=== PATIENT | male | born 1940 | race Caucasian/White ===

== ENCOUNTER 2018-04-07 23:22 | Inpatient (IN) | payer MEDICARE, MEDICAID ==
[2018-04-07] MEDS ORDERED: Sodium Chloride 0.9% 1,000 ML IV ONE (23:42)
[2018-04-08 00:21] LABS: ALB/GLOB RATIO 1.2 (1.0-1.8); ALBUMIN 2.8 gm/dL (4.2-5.5); ALKALINE PHOSPHATASE 60 U/L (34-104); ANION GAP 10.2 (7.0-16.0); BILIRUBIN,TOTAL 0.3 mg/dL (0.3-1.0); BUN - UREA NITROGEN 18 mg/dL (7-25); CALCIUM SERUM 8.3 mg/dL (8.6-10.3); CARBON DIOXIDE 25.2 mEq/L (21.0-31.0); CHLORIDE 107 mEq/L (98-107); CREATININE - SERUM 0.9 mg/dL (0.7-1.3); GLUCOSE 109 mg/dL (70-105); POTASSIUM SERUM 3.4 mEq/L (3.5-5.1); SGOT 14 U/L (13-39); SGPT/ALT 11 U/L (7-52); SODIUM SERUM 139 mEq/L (136-145); TOTAL PROTEIN,SERUM 5.2 gm/dL (6.0-8.3)
[2018-04-08 00:22] LABS: % BASOPHILS 0.8 % (0.0-2.0); % EOSINOPHILS 3.1 % (0.0-5.0); % LYMPHOCYTES 28.5 % (20.0-50.0); % MONOCYTES 9.9 % (2.0-10.0); % NEUTROPHILS 57.7 % (40.0-80.0); EOSINOPHILE ABSOLUTE 0.2 Th/cmm (0.1-0.4); HEMATOCRIT 31.4 % (41.0-60); HEMOGLOBIN 10.8 gm/dL (12-16); LYMPHOCYTE ABSOLUTE 1.6 Th/cmm (1.5-3.0); MEAN CELL VOLUME 88.7 fl (80-99); MEAN CORPUSCULAR HEMOGLOBIN 30.5 pg (27.0-31.0); MEAN CORPUSCULAR HGB CONC 34.5 pg (28.0-36.0); MONOCYTE ABSOLUTE 0.6 Th/cmm (0.3-1.0); NEUTROPHILE ABSOLUTE 3.3 Th/cmm (1.8-8.0); PLATELET COUNT 299 Th/cmm (150-400); RED BLOOD COUNT 3.54 Mil/cmm (3.80-5.80); RED CELL DISTRIBUTION WIDTH 13.7 % (11.5-20.0); WHITE BLOOD COUNT 5.7 Th/cmm (4.8-10.8)
[2018-04-08] MEDS ORDERED: Potassium Chloride 20 mEq ER Tab PO ONE ×2 (00:57→01:07)
--- NOTE | 2018-04-08 00:59 | ED Physician Chart ---
ED Chief Complaint/HPI - Patient Information Date Seen:: 04/08/18 Time Seen:: 00:58 Chief Complaint:: Hypotension History of Present Illness:: 77 yo male was brought from SNF to ER due to decreased oral intake, confusion and agitation. Patient was found to have hypotension as well. On arrival, patient's BP was 78/44. Patient was awake and confused. Allergies:: Allergies Allergy/AdvReac Type Severity Reaction Status Date / Time No Known Allergies Allergy Verified 04/07/18 23:38 Vitals:: Vital Signs - 8 hr 04/07/18 04/07/18 23:25 23:51 Temp 97.2 F HR 72 85 RR 18 17 BP 78/44 109/57 O2 Sat % 94 96 ED Review of Systems - Review of Systems General/Constitutional: No fever, Weakness Skin: No bruising Head: No headache Eyes: No pain ENT: No nasal drainage Neck: No neck pain Cardio Vascular: No chest pain Pulmonary: No SOB GI: No nausea, No vomiting Musculoskeletal: No bone or joint pain Neurological: Weakness, Confusion ED Past Medical History - Past Medical History Past Medical History: CAD, CHF, Asthma/COPD, Dyslipidemia, PUD/GERD, Seizures, Thyroid disorder, Dementia, Other (Anemia, AFib, metabolic encephalopathy) Social History: Non Smoker, No Alcohol, No Drug Use Family Medical History - Family Member Mother History Unknown: Yes ED Physical Exam - Physical Examination General/Constitutional: Awake, Alert Other Gen/Cons comments:: generalized weakness Head: Atraumatic Eyes: PERRL Skin: No ecchymosis ENMT: Nasal exam nl Neck: No nuchal rigidity Respiratory: No Wheeze/Rhonchi/Rales Cardio Vascular: No murmur, gallop, rubs, NL S1 S2 GI: No tenderness/rebounding/guarding Extremities: normal strength in all extremities Other Neuro/Psych comments:: Oriented to self ED Labs/Radiology/EKG Results - Lab Results Results: Laboratory Tests 04/07/18 04/07/18 04/07/18 23:50 23:50 23:50 WBC 5.7 RBC 3.54 L Hgb 10.8 L Hct 31.4 L MCV 88.7 MCH 30.5 MCHC Differential 34.5 RDW 13.7 Plt Count 299 MPV 8.0 Neutrophils % 57.7 Lymphocytes % 28.5 Monocytes % 9.9 Eosinophils % 3.1 Basophils % 0.8 Sodium 139 Potassium 3.4 L Chloride 107 Carbon Dioxide 25.2 Anion Gap 10.2 BUN 18 Creatinine 0.9 Est GFR ( Amer) TNP Est GFR (Non-Af Amer) TNP BUN/Creatinine Ratio 20.0 Glucose 109 H Whole Bld Lactic Acid Calcium 8.3 L Total Bilirubin 0.3 AST 14 ALT 11 Alkaline Phosphatase 60 Troponin I B-Natriuretic Peptide 174.0 H Total Protein 5.2 L Albumin 2.8 L Globulin 2.4 Albumin/Globulin Ratio 1.2 04/07/18 04/07/18 23:50 23:50 WBC RBC Hgb Hct MCV MCH MCHC Differential RDW Plt Count MPV Neutrophils % Lymphocytes % Monocytes % Eosinophils % Basophils % Sodium Potassium Chloride Carbon Dioxide Anion Gap BUN Creatinine Est GFR ( Amer) Est GFR (Non-Af Amer) BUN/Creatinine Ratio Glucose Whole Bld Lactic Acid 1.06 Calcium Total Bilirubin AST ALT Alkaline Phosphatase Troponin I 0.01 B-Natriuretic Peptide Total Protein Albumin Globulin Albumin/Globulin Ratio - Radiology Results Results: CXR: COPD - EKG Interpretations EKG Time:: 00:15 Rate & Rhythm: Sinus rhythm [place]: normal P axis Intervals: RBBB ED Assessment - Assessment General Assessment: Hypotension Dehydration Hypokalemia Normocytic anemia CHF Assessment/Comments:: CBC, CMP, Troponin, BNP, UA CXR, EKG NS 1L IV bolus KCL 40 mEq po Admit to telemetry ED Septic Shock - . Is Septic Shock (SBP<90, OR Lactate>4 mmol\L) present?: No - <6hrs of presentation: Vital Signs: Vital Signs - 8 hr 04/07/18 04/07/18 23:25 23:51 Temp 97.2 F HR 72 85 RR 18 17 BP 78/44 109/57 O2 Sat % 94 96 ED Reassessment (Disposition) - Reassessment Reassessment Condition:: Improved - Patient Disposition Discharge/Transfer:: Acute Care w/in this hosp Admitting Medical Physician:: Christopher Garsia ED Discharge Plan - Patient Disposition Instructions: Hypotension
[2018-04-08] MEDS: D5-0.9%NS 1,000 ML IV SCH ×2 (02:01→15:20)
[2018-04-08 02:15] VITALS: BP 107/50
--- NOTE | 2018-04-08 10:07 | Diagnostic Imaging Report ---
CHEST X-RAY: AP view INDICATION: Cough COMPARISON: None FINDINGS: Chronic lung changes are seen. There is no focal consolidation or pleural effusions The heart is normal in size. Atherosclerosis is noted. Degenerative changes of the spine are noted. Nonspecific gas-filled loops of bowel in the upper abdomen are noted. IMPRESSION: Chronic lung changes. No focal consolidation identified. Atherosclerotic vascular disease.
[2018-04-08] MEDS ORDERED: VTE Chemical Prophylaxis Screen/Admission MC PRN (13:25)
[2018-04-08] MEDS ORDERED: Magnesium Hydroxide (MOM) 30 mL UDC PO PRN (16:50)
[2018-04-08] MEDS ORDERED: LACTULOSE PO SCH (17:00)
[2018-04-08] MEDS: Atorvastatin Calcium 10 MG TAB PO SCH (20:52)
[2018-04-09] MEDS ORDERED: Piperacillin Sodium/Tazobact 3.375 gm Vial IV ONE (01:06)
--- NOTE | 2018-04-09 01:41 | History & Physical ---
ADMIT DATE: 04/08/2018 CHIEF COMPLAINT: Confusion, weakness. HISTORY OF PRESENT ILLNESS: The patient is a 77-year-old male admitted from the Emergency Room to telemetry floor of [facility] due to multiple complicated medical conditions. The patient apparently was much more confused than his baseline mental status in the past few days, which actually waxed and waned. He was very weak and also agitated from time to time. The patient has had poor p.o. intake. In the Emergency Room, the patient was noted with low blood pressure, systolic blood pressure was only in the 70-80. The patient was given normal saline bolus with some improvement. However, the patient's lactic acid was normal at 1.06. He refused urine collection, will try again. His potassium is low at 3.4. BNP 174 with normal being less than 100. PAST MEDICAL HISTORY: COPD, pneumonia, atrial fibrillation, seizure, mild psychosis, anxiety, urinary tract infection. PAST SURGICAL HISTORY: Status post partial small bowel resection several years ago. MEDICATIONS: See medication reconciliation list. ALLERGIES: No known drug allergy. FAMILY HISTORY: Noncontributory. SOCIAL HISTORY: The patient is not without any children. He has one brother with loose contact from time to time. REVIEW OF SYSTEMS: Not feasible as the patient is confused and noncompliant. PHYSICAL EXAMINATION: GENERAL: Well-developed cachectic male in no acute distress. SKIN: There is excoriation in cecal area. VITAL SIGNS: Still with low blood pressure, systolic 80-90. HEENT: Normocephalic, atraumatic. Pupils equal, round, reactive to light and accommodation. CHEST: Symmetrical. LUNGS: Few wheezing appreciated. HEART: Normal sinus rhythm. S1, S2. ABDOMEN: Benign, soft, nontender. EXTREMITIES: No clubbing, cyanosis or edema bilaterally, 2+ equally. NEUROLOGICAL: Unremarkable. LABORATORY DATA: Reviewed as seen from the computer. ASSESSMENT AND PLAN: 1. Altered level of consciousness and on and off due to metabolic encephalopathy and dementia. We will observe closely. 2. Hypotension: Etiology of this is not entirely clear, but probably due to early sepsis, but the patient's lactic acid is 1.06, which is normal. We will repeat in the morning. The patient refused UA however, his white count in CBC is normal. Chest x-ray initially revealed no apparent infiltrate; however, the patient had severe dehydration and radiographic appearance may be normal in the beginning. We will continue IV hydration. 3. Chronic obstructive pulmonary disease: RT protocol. 4. Dysphagia: Swallow evaluation and aspiration precaution be exercised . 5. Congestive heart failure with elevated BNP to 178 with normal being less than 100. 6. Noncompliance, education provided. 7. History of seizure: Continue medication. 8. History of mild psychosis, adjustment medication as needed. 9. Failure to thrive: Multifactorial. 10. Deep vein thrombosis prophylaxis. [facility]# [id number]
[2018-04-09] MEDS: D5-0.9%NS 1,000 ML IV SCH ×2 (03:35→15:03)
[2018-04-09 06:24] LABS: % BASOPHILS 0.6 % (0.0-2.0); % EOSINOPHILS 4.9 % (0.0-5.0); % LYMPHOCYTES 22.1 % (20.0-50.0); % MONOCYTES 8.2 % (2.0-10.0); % NEUTROPHILS 64.2 % (40.0-80.0); EOSINOPHILE ABSOLUTE 0.3 Th/cmm (0.1-0.4); HEMATOCRIT 33.7 % (41.0-60); HEMOGLOBIN 11.4 gm/dL (12-16); LYMPHOCYTE ABSOLUTE 1.3 Th/cmm (1.5-3.0); MEAN CELL VOLUME 90.1 fl (80-99); MEAN CORPUSCULAR HEMOGLOBIN 30.5 pg (27.0-31.0); MEAN CORPUSCULAR HGB CONC 33.8 pg (28.0-36.0); MEAN PLATELET VOLUME 7.5 fl; MONOCYTE ABSOLUTE 0.5 Th/cmm (0.3-1.0); NEUTROPHILE ABSOLUTE 3.6 Th/cmm (1.8-8.0); PLATELET COUNT 345 Th/cmm (150-400); RED BLOOD COUNT 3.74 Mil/cmm (3.80-5.80); RED CELL DISTRIBUTION WIDTH 14.2 % (11.5-20.0); WHITE BLOOD COUNT 5.7 Th/cmm (4.8-10.8)
[2018-04-09 06:35] LABS: ALB/GLOB RATIO 1.3 (1.0-1.8); ALBUMIN 2.9 gm/dL (4.2-5.5); ALKALINE PHOSPHATASE 47 U/L (34-104); ANION GAP 7.7 (7.0-16.0); BILIRUBIN,TOTAL 0.5 mg/dL (0.3-1.0); BUN - UREA NITROGEN 10 mg/dL (7-25); CALCIUM SERUM 8.5 mg/dL (8.6-10.3); CARBON DIOXIDE 27.1 mEq/L (21.0-31.0); CHLORIDE 108 mEq/L (98-107); CREATININE - SERUM 0.7 mg/dL (0.7-1.3); GLUCOSE 94 mg/dL (70-105); POTASSIUM SERUM 3.8 mEq/L (3.5-5.1); SGOT 13 U/L (13-39); SGPT/ALT 10 U/L (7-52); SODIUM SERUM 139 mEq/L (136-145); TOTAL PROTEIN,SERUM 5.2 gm/dL (6.0-8.3)
[2018-04-09 06:41] LABS: URINE MICROSCOPIC INDICATED? YES; URINE SOURCE RANDOM
[2018-04-09 06:42] LABS: URINE BILIRUBIN NEGATIVE (NEGATIVE); URINE BLOOD TRACE (NEGATIVE); URINE GLUCOSE (UA) NEGATIVE (NEGATIVE); URINE KETONE NEGATIVE (NEGATIVE); URINE LEUKOCYTE ESTERASE MODERATE (NEGATIVE); URINE NITRATE NEGATIVE (NEGATIVE); URINE PH 7.5 (4.6 - 8.0); URINE PROTEIN NEGATIVE (NEGATIVE); URINE UROBILINOGEN 0.2 E.U./dL (0.2 - 1.0)
[2018-04-09 06:45] LABS: URINE CLARITY TURBID (CLEAR); URINE COLOR STRAW
[2018-04-09 06:51] LABS: URINE RBC 0-2 /hpf (0-5)
[2018-04-09 06:53] LABS: URINE BACTERIA 1+ /hpf (NONE SEEN); URINE EPITHELIAL CELLS OCCASIONAL /lpf (FEW)
[2018-04-09] MEDS ORDERED: Probiotic Screen MC PRN (08:45)
[2018-04-09] MEDS ORDERED: CHOLECALCIFEROL 1000 UNIT PO SCH (09:00)
[2018-04-09] MEDS ORDERED: Non-Formulary Item 1 EA (Cranberry Fruit Concentrate [Cranberry] 450 MG) PO SCH (09:00)
[2018-04-09] MEDS ORDERED: Non-Formulary Item 1 EA (Multivitamin [Multivitamins] 1 CAP) PO SCH (09:00)
[2018-04-09] MEDS: Lactulose 10 Gm/15 mL 30mL UDC PO SCH ×2 (09:02→16:49)
[2018-04-09] MEDS: Pantoprazole 40 mg EC Tab PO SCH (09:03)
[2018-04-09] MEDS: Multivitamin Tab PO SCH (09:03)
[2018-04-09] MEDS: Ferrous Sulfate 325 MG TAB PO SCH (09:03)
[2018-04-09] MEDS: Lactobacillus Rhamnosus GG 15 Billion CFU CAP.SPRINK PO SCH (09:50)
--- NOTE | 2018-04-09 19:49 | Internal Medicine Prog Note ---
Internal Medicine Subjective - Subjective Service Date: 04/09/18 Patient seen and examined:: without staff Patient is:: awake, verbal, agitated, congested Patient Complaints of:: congestion, cough, headache Per staff patient has:: no adverse event Internal Medicine Objective - Results Result Diagrams: 04/09/18 06:00 04/09/18 06:00 Recent Labs: Laboratory Last Values WBC 5.7 Th/cmm (4.8-10.8) 04/09/18 06:00 RBC 3.74 Mil/cmm (3.80-5.80) L 04/09/18 06:00 Hgb 11.4 gm/dL (12-16) L 04/09/18 06:00 Hct 33.7 % (41.0-60) L 04/09/18 06:00 MCV 90.1 fl (80-99) 04/09/18 06:00 MCH 30.5 pg (27.0-31.0) 04/09/18 06:00 MCHC Differential 33.8 pg (28.0-36.0) 04/09/18 06:00 RDW 14.2 % (11.5-20.0) 04/09/18 06:00 Plt Count 345 Th/cmm (150-400) 04/09/18 06:00 MPV 7.5 fl 04/09/18 06:00 Neutrophils % 64.2 % (40.0-80.0) 04/09/18 06:00 Lymphocytes % 22.1 % (20.0-50.0) 04/09/18 06:00 Monocytes % 8.2 % (2.0-10.0) 04/09/18 06:00 Eosinophils % 4.9 % (0.0-5.0) 04/09/18 06:00 Basophils % 0.6 % (0.0-2.0) 04/09/18 06:00 Sodium 139 mEq/L (136-145) 04/09/18 06:00 Potassium 3.8 mEq/L (3.5-5.1) 04/09/18 06:00 Chloride 108 mEq/L (98-107) H 04/09/18 06:00 Carbon Dioxide 27.1 mEq/L (21.0-31.0) 04/09/18 06:00 Anion Gap 7.7 (7.0-16.0) 04/09/18 06:00 BUN 10 mg/dL (7-25) 04/09/18 06:00 Creatinine 0.7 mg/dL (0.7-1.3) 04/09/18 06:00 Est GFR ( Amer) TNP 04/09/18 06:00 Est GFR (Non-Af Amer) TNP 04/09/18 06:00 BUN/Creatinine Ratio 14.3 04/09/18 06:00 Glucose 94 mg/dL (70-105) 04/09/18 06:00 Whole Bld Lactic Acid 0.70 mmol/L (0.60-1.99) 04/09/18 06:00 Calcium 8.5 mg/dL (8.6-10.3) L 04/09/18 06:00 Total Bilirubin 0.5 mg/dL (0.3-1.0) 04/09/18 06:00 AST 13 U/L (13-39) 04/09/18 06:00 ALT 10 U/L (7-52) 04/09/18 06:00 Alkaline Phosphatase 47 U/L (34-104) 04/09/18 06:00 Troponin I 0.01 ng/mL (0.01-0.05) 04/07/18 23:50 B-Natriuretic Peptide 174.0 pg/mL (5.0-100.0) H 04/07/18 23:50 Total Protein 5.2 gm/dL (6.0-8.3) L 04/09/18 06:00 Albumin 2.9 gm/dL (4.2-5.5) L 04/09/18 06:00 Globulin 2.3 gm/dL 04/09/18 06:00 Albumin/Globulin Ratio 1.3 (1.0-1.8) 04/09/18 06:00 TSH 0.91 uIU/ml (0.34-5.60) 04/09/18 06:00 Urine Source RANDOM 04/09/18 04:20 Urine Color STRAW 04/09/18 04:20 Urine Clarity TURBID (CLEAR) 04/09/18 04:20 Urine pH 7.5 (4.6 - 8.0) 04/09/18 04:20 Ur Specific [place] 1.010 (1.005-1.030) 04/09/18 04:20 Urine Protein NEGATIVE mg/dL (NEGATIVE) 04/09/18 04:20 Urine Glucose (UA) NEGATIVE mg/dL (NEGATIVE) 04/09/18 04:20 Urine Ketones NEGATIVE mg/dL (NEGATIVE) 04/09/18 04:20 Urine Blood TRACE (NEGATIVE) 04/09/18 04:20 Urine Nitrate NEGATIVE (NEGATIVE) 04/09/18 04:20 Urine Bilirubin NEGATIVE (NEGATIVE) 04/09/18 04:20 Urine Urobilinogen 0.2 E.U./dL (0.2 - 1.0) 04/09/18 04:20 Ur Leukocyte Esterase MODERATE (NEGATIVE) H 04/09/18 04:20 Urine RBC 0-2 /hpf (0-5) H 04/09/18 04:20 Urine WBC 10-25 /hpf (0-5) H 04/09/18 04:20 Ur Epithelial Cells OCCASIONAL /lpf (FEW) 04/09/18 04:20 Urine Bacteria 1+ /hpf (NONE SEEN) H 04/09/18 04:20 Urine Mucus FEW /lpf (FEW) 04/09/18 04:20 - Physical Exam Vitals and I&O: Vital Signs Temp 98.2 F 04/09/18 16:00 Pulse 69 04/09/18 16:00 Resp 17 04/09/18 16:00 BP 92/57 04/09/18 16:00 Pulse Ox 97 04/09/18 12:13 Intake & Output 04/09/18 04/09/18 04/10/18 06:59 18:59 06:59 Intake Total 1250 1367.333 Balance 1250 1367.333 Weight (lbs) 51.256 kg 51.256 kg Intake: Intake, IV Amount 1050 967.333 D5-0.9%Ns 1,000 ml @ 80 1000 917.333 mls/hr IV .[id number] [facility] Rx #:[id number] Piperacillin Sodium/ 50 50 Tazobact 3.375 gm In Sodium Chloride 0.9% 50 ml @ 100 mls/hr IV Q8H [facility] Rx#:[id number] Oral 200 400 Other: # Voids 3 3 # Bowel Movements 0 2 Weight Source Bedscale Bedscale Active Medications: Current Medications Acetaminophen (Tylenol) 650 mg PO Q6HR PRN PRN Reason: Pain or Fever >101 Stop: 06/07/18 16:49 Ascorbic Acid (Vitamin C) 500 mg PO DAILY [facility] Stop: 06/08/18 08:59 Last Admin: 04/09/18 09:03 Dose: 500 mg Atorvastatin Calcium (Lipitor) 10 mg PO HS [facility]; Protocol Stop: 06/07/18 20:59 Last Admin: 04/08/18 20:52 Dose: 10 mg Bisacodyl (Dulcolax 10 Mg Supp) 10 mg RC DAILY PRN PRN Reason: Constipation Stop: 06/07/18 16:49 Cholecalciferol (Vitamin D3) 1,000 iu PO DAILY [facility] Stop: 06/08/18 08:59 Last Admin: 04/09/18 09:03 Dose: 1,000 iu Divalproex Sodium (Depakote Er) 250 mg PO DAILY [facility]; Protocol Stop: 06/08/18 08:59 Last Admin: 04/09/18 09:03 Dose: 250 mg Divalproex Sodium (Depakote Er) 500 mg PO HS [facility]; Protocol Stop: 06/07/18 20:59 Donepezil HCl (Aricept) 5 mg PO [facility] Stop: 06/07/18 20:59 Last Admin: 04/08/18 20:53 Dose: 5 mg Ferrous Sulfate (Iron) 325 mg PO DAILY [facility] Stop: 06/08/18 08:59 Last Admin: 04/09/18 09:03 Dose: 325 mg Dextrose/Sodium Chloride (D5-0.9%Ns) 1,000 mls @ 80 mls/hr IV .[id number] [facility] Stop: 06/07/18 01:59 Last Admin: 04/09/18 15:03 Dose: 80 mls/hr Piperacillin Sod/Tazobactam (Sod 3.375 gm/ Sodium Chloride) 50 mls @ 100 mls/ hr IV Q8H [facility] Stop: 06/08/18 00:59 Last Admin: 04/09/18 16:49 Dose: 100 mls/hr Lactobacillus Rhamnosus (Culturelle 15b) 1 each PO DAILY [facility] Stop: 06/08/18 08:59 Last Admin: 04/09/18 09:50 Dose: 1 each Lactulose (Cephulac) 30 gm PO BID [facility] Stop: 06/08/18 08:59 Last Admin: 04/09/18 16:49 Dose: Not Given Magnesium Hydroxide (Milk Of Magnesia) 30 ml PO DAILY PRN PRN Reason: Constipation Stop: 06/07/18 16:49 Memantine (Namenda) 10 mg PO DAILY [facility] Stop: 06/08/18 08:59 Last Admin: 04/09/18 09:03 Dose: 10 mg Miscellaneous (Vte Chemical Prophylaxis Screen/ Admission) 1 ea PRN PRN PRN Reason: PROTOCOL Stop: 06/07/18 13:24 Miscellaneous (Probiotic Screen) 1 ea PRN PRN PRN Reason: PROTOCOL Stop: 06/08/18 08:44 Multivitamins/Vitamin C (Theragran) 1 tab PO DAILY [facility] Stop: 06/08/18 08:59 Last Admin: 04/09/18 09:03 Dose: 1 tab Nitroglycerin (Nitrostat) 0.4 mg SL Q5MIN PRN PRN Reason: Chest Pain Stop: 06/07/18 16:49 Pantoprazole Sodium (Protonix) 40 mg PO DAILY [facility] Stop: 06/08/18 08:59 Last Admin: 04/09/18 09:03 Dose: 40 mg Quetiapine Fumarate (Seroquel) 50 mg PO HS [facility]; Protocol Stop: 06/07/18 20:59 Zinc Sulfate (Zinc Sulfate) 220 mg PO DAILY [facility] Stop: 06/08/18 08:59 Last Admin: 04/09/18 09:03 Dose: 220 mg General: weak, lethargic, congested, demented, cachectic, NAD HEENT: NC/AT, PERRLA, EOMI, anicteric sclerae, throat clear Neck: Supple, No JVD, No thyromegaly, No LAD Lungs: congested, wheezing Cardiovascular: RRR, Normal S1, Normal S2 Abdomen: soft, non-tender, non-distended, positive bowel sound Extremities: clear, pedal pulses, rash, contracture, deformity Neurological: no change, lethargic, muscle weakness, unsteady, bedbound Internal Medicine Assmt/Plan - Assessment Assessment: UTI: C&S pending; continue IVPB ABX for now. ALOC: on and off; observe closely. Hypotension: etiology unclear; continue IVF. Failure to thrive: work up in progress. COPD: RT protocol. Dysphagia: better. CHF: mild, due to h/o CAd, s/o [place] Anxiety/ Psychosis. s/p partial small bowel resection about 5 years ago. Seizure: continue meds. DVT Prophylaxis.
[2018-04-09] MEDS: Atorvastatin Calcium 10 MG TAB PO SCH (20:36)
[2018-04-10] MEDS: Lactulose 10 Gm/15 mL 30mL UDC PO SCH (08:53)
[2018-04-10] MEDS: Multivitamin Tab PO SCH (08:55)
[2018-04-10] MEDS: Ferrous Sulfate 325 MG TAB PO SCH (08:55)
[2018-04-10] MEDS: Pantoprazole 40 mg EC Tab PO SCH (08:56)
[2018-04-10] MEDS: Lactobacillus Rhamnosus GG 15 Billion CFU CAP.SPRINK PO SCH (08:56)
[2018-04-10] MEDS: Atorvastatin Calcium 10 MG TAB PO SCH (20:56)
--- NOTE | 2018-04-10 22:36 | Internal Medicine Prog Note ---
Internal Medicine Subjective - Subjective Service Date: 04/10/18 Patient is:: awake, verbal, agitated, congested Patient Complaints of:: congestion, cough, headache Per staff patient has:: no adverse event Internal Medicine Objective - Results Result Diagrams: 04/09/18 06:00 04/09/18 06:00 Recent Labs: Laboratory Last Values WBC 5.7 Th/cmm (4.8-10.8) 04/09/18 06:00 RBC 3.74 Mil/cmm (3.80-5.80) L 04/09/18 06:00 Hgb 11.4 gm/dL (12-16) L 04/09/18 06:00 Hct 33.7 % (41.0-60) L 04/09/18 06:00 MCV 90.1 fl (80-99) 04/09/18 06:00 MCH 30.5 pg (27.0-31.0) 04/09/18 06:00 MCHC Differential 33.8 pg (28.0-36.0) 04/09/18 06:00 RDW 14.2 % (11.5-20.0) 04/09/18 06:00 Plt Count 345 Th/cmm (150-400) 04/09/18 06:00 MPV 7.5 fl 04/09/18 06:00 Neutrophils % 64.2 % (40.0-80.0) 04/09/18 06:00 Lymphocytes % 22.1 % (20.0-50.0) 04/09/18 06:00 Monocytes % 8.2 % (2.0-10.0) 04/09/18 06:00 Eosinophils % 4.9 % (0.0-5.0) 04/09/18 06:00 Basophils % 0.6 % (0.0-2.0) 04/09/18 06:00 Sodium 139 mEq/L (136-145) 04/09/18 06:00 Potassium 3.8 mEq/L (3.5-5.1) 04/09/18 06:00 Chloride 108 mEq/L (98-107) H 04/09/18 06:00 Carbon Dioxide 27.1 mEq/L (21.0-31.0) 04/09/18 06:00 Anion Gap 7.7 (7.0-16.0) 04/09/18 06:00 BUN 10 mg/dL (7-25) 04/09/18 06:00 Creatinine 0.7 mg/dL (0.7-1.3) 04/09/18 06:00 Est GFR ( Amer) TNP 04/09/18 06:00 Est GFR (Non-Af Amer) TNP 04/09/18 06:00 BUN/Creatinine Ratio 14.3 04/09/18 06:00 Glucose 94 mg/dL (70-105) 04/09/18 06:00 Whole Bld Lactic Acid 0.70 mmol/L (0.60-1.99) 04/09/18 06:00 Calcium 8.5 mg/dL (8.6-10.3) L 04/09/18 06:00 Total Bilirubin 0.5 mg/dL (0.3-1.0) 04/09/18 06:00 AST 13 U/L (13-39) 04/09/18 06:00 ALT 10 U/L (7-52) 04/09/18 06:00 Alkaline Phosphatase 47 U/L (34-104) 04/09/18 06:00 Troponin I 0.01 ng/mL (0.01-0.05) 04/07/18 23:50 B-Natriuretic Peptide 174.0 pg/mL (5.0-100.0) H 04/07/18 23:50 Total Protein 5.2 gm/dL (6.0-8.3) L 04/09/18 06:00 Albumin 2.9 gm/dL (4.2-5.5) L 04/09/18 06:00 Globulin 2.3 gm/dL 04/09/18 06:00 Albumin/Globulin Ratio 1.3 (1.0-1.8) 04/09/18 06:00 TSH 0.91 uIU/ml (0.34-5.60) 04/09/18 06:00 Urine Source RANDOM 04/09/18 04:20 Urine Color STRAW 04/09/18 04:20 Urine Clarity TURBID (CLEAR) 04/09/18 04:20 Urine pH 7.5 (4.6 - 8.0) 04/09/18 04:20 Ur Specific [place] 1.010 (1.005-1.030) 04/09/18 04:20 Urine Protein NEGATIVE mg/dL (NEGATIVE) 04/09/18 04:20 Urine Glucose (UA) NEGATIVE mg/dL (NEGATIVE) 04/09/18 04:20 Urine Ketones NEGATIVE mg/dL (NEGATIVE) 04/09/18 04:20 Urine Blood TRACE (NEGATIVE) 04/09/18 04:20 Urine Nitrate NEGATIVE (NEGATIVE) 04/09/18 04:20 Urine Bilirubin NEGATIVE (NEGATIVE) 04/09/18 04:20 Urine Urobilinogen 0.2 E.U./dL (0.2 - 1.0) 04/09/18 04:20 Ur Leukocyte Esterase MODERATE (NEGATIVE) H 04/09/18 04:20 Urine RBC 0-2 /hpf (0-5) H 04/09/18 04:20 Urine WBC 10-25 /hpf (0-5) H 04/09/18 04:20 Ur Epithelial Cells OCCASIONAL /lpf (FEW) 04/09/18 04:20 Urine Bacteria 1+ /hpf (NONE SEEN) H 04/09/18 04:20 Urine Mucus FEW /lpf (FEW) 04/09/18 04:20 - Physical Exam Vitals and I&O: Vital Signs Temp 97.0 F 04/10/18 15:52 Pulse 60 04/10/18 15:52 Resp 17 04/10/18 20:00 BP 93/60 04/10/18 15:52 Pulse Ox 96 04/10/18 15:52 Intake & Output 04/10/18 04/10/18 04/11/18 06:59 18:59 06:59 Intake Total 150 50 Balance 150 50 Weight (lbs) 48.58 kg Intake: Intake, IV Amount 50 50 Piperacillin Sodium/ 50 50 Tazobact 3.375 gm In Sodium Chloride 0.9% 50 ml @ 100 mls/hr IV Q8H [facility] Rx#:[id number] Oral 100 Other: # Voids 2 # Bowel Movements 0 Weight Source Bedscale Active Medications: Current Medications Acetaminophen (Tylenol) 650 mg PO Q6HR PRN PRN Reason: Pain or Fever >101 Stop: 06/07/18 16:49 Ascorbic Acid (Vitamin C) 500 mg PO DAILY [facility] Stop: 06/08/18 08:59 Last Admin: 04/10/18 08:55 Dose: 500 mg Atorvastatin Calcium (Lipitor) 10 mg PO [facility]; Protocol Stop: 06/07/18 20:59 Last Admin: 04/10/18 20:56 Dose: 10 mg Bisacodyl (Dulcolax 10 Mg Supp) 10 mg RC DAILY PRN PRN Reason: Constipation Stop: 06/07/18 16:49 Cholecalciferol (Vitamin D3) 1,000 iu PO DAILY [facility] Stop: 06/08/18 08:59 Last Admin: 04/10/18 08:55 Dose: 1,000 iu Divalproex Sodium (Depakote Er) 250 mg PO DAILY [facility]; Protocol Stop: 06/08/18 08:59 Last Admin: 04/10/18 08:55 Dose: 250 mg Divalproex Sodium (Depakote Er) 500 mg PO HS [facility]; Protocol Stop: 06/07/18 20:59 Last Admin: 04/10/18 20:56 Dose: 500 mg Donepezil HCl (Aricept) 5 mg PO HS [facility] Stop: 06/07/18 20:59 Last Admin: 04/10/18 20:56 Dose: 5 mg Ferrous Sulfate (Iron) 325 mg PO DAILY [facility] Stop: 06/08/18 08:59 Last Admin: 04/10/18 08:55 Dose: 325 mg Dextrose/Sodium Chloride (D5-0.9%Ns) 1,000 mls @ 80 mls/hr IV .[id number] [facility] Stop: 06/07/18 01:59 Last Admin: 04/09/18 15:03 Dose: 80 mls/hr Piperacillin Sod/Tazobactam (Sod 3.375 gm/ Sodium Chloride) 50 mls @ 100 mls/ hr IV Q8H [facility] Stop: 06/08/18 00:59 Last Infusion: 04/10/18 10:30 Dose: Infused Lactobacillus Rhamnosus (Culturelle 15b) 1 each PO DAILY [facility] Stop: 06/08/18 08:59 Last Admin: 04/10/18 08:56 Dose: 1 each Lactulose (Cephulac) 30 gm PO BID [facility] Stop: 06/08/18 08:59 Last Admin: 04/10/18 08:53 Dose: 30 gm Magnesium Hydroxide (Milk Of Magnesia) 30 ml PO DAILY PRN PRN Reason: Constipation Stop: 06/07/18 16:49 Memantine (Namenda) 10 mg PO DAILY [facility] Stop: 06/08/18 08:59 Last Admin: 04/10/18 08:56 Dose: 10 mg Miscellaneous (Vte Chemical Prophylaxis Screen/ Admission) 1 ea [facility] PRN PRN PRN Reason: PROTOCOL Stop: 06/07/18 13:24 Miscellaneous (Probiotic Screen) 1 ea [facility] PRN PRN PRN Reason: PROTOCOL Stop: 06/08/18 08:44 Multivitamins/Vitamin C (Theragran) 1 tab PO DAILY [facility] Stop: 06/08/18 08:59 Last Admin: 04/10/18 08:55 Dose: 1 tab Nitroglycerin (Nitrostat) 0.4 mg SL Q5MIN PRN PRN Reason: Chest Pain Stop: 06/07/18 16:49 Pantoprazole Sodium (Protonix) 40 mg PO DAILY [facility] Stop: 06/08/18 08:59 Last Admin: 04/10/18 08:56 Dose: 40 mg Quetiapine Fumarate (Seroquel) 50 mg PO HS [facility]; Protocol Stop: 06/07/18 20:59 Last Admin: 04/10/18 20:56 Dose: 50 mg Zinc Sulfate (Zinc Sulfate) 220 mg PO DAILY [facility] Stop: 06/08/18 08:59 Last Admin: 04/10/18 08:55 Dose: 220 mg General: weak, lethargic, congested, demented, cachectic, NAD HEENT: NC/AT, PERRLA, EOMI, anicteric sclerae, throat clear Neck: Supple, No JVD, No thyromegaly, No LAD Lungs: congested, wheezing Cardiovascular: RRR, Normal S1, Normal S2 Abdomen: soft, non-tender, non-distended, positive bowel sound Extremities: clear, pedal pulses, rash, contracture, deformity Neurological: no change, lethargic, muscle weakness, unsteady, bedbound Internal Medicine Assmt/Plan - Assessment Assessment: Hypotension: etiology unclear; continue IVF. UTI: C&S pending; continue IVPB ABX for now. ALOC: on and off; observe closely. Failure to thrive: work up in progress. COPD: RT protocol. Dysphagia: better. CHF: mild, due to h/o CAd, s/o [place] Anxiety/ Psychosis. s/p partial small bowel resection about 5 years ago. Seizure: continue meds. DVT Prophylaxis.
[2018-04-11] MEDS: Lactulose 10 Gm/15 mL 30mL UDC PO SCH ×2 (08:23→17:22)
[2018-04-11] MEDS: Pantoprazole 40 mg EC Tab PO SCH (08:24)
[2018-04-11] MEDS: Multivitamin Tab PO SCH (08:24)
[2018-04-11] MEDS: Lactobacillus Rhamnosus GG 15 Billion CFU CAP.SPRINK PO SCH (08:24)
[2018-04-11] MEDS: Ferrous Sulfate 325 MG TAB PO SCH (08:24)
[2018-04-11] MEDS: D5-0.9%NS 1,000 ML IV SCH (17:09)
[2018-04-11] MEDS: Atorvastatin Calcium 10 MG TAB PO SCH (21:25)
--- NOTE | 2018-04-11 23:09 | Internal Medicine Prog Note ---
Internal Medicine Subjective - Subjective Service Date: 04/11/18 Patient is:: awake, verbal, agitated, congested Patient Complaints of:: congestion, cough, headache Per staff patient has:: no adverse event Internal Medicine Objective - Results Result Diagrams: 04/09/18 06:00 04/09/18 06:00 Recent Labs: Laboratory Last Values WBC 5.7 Th/cmm (4.8-10.8) 04/09/18 06:00 RBC 3.74 Mil/cmm (3.80-5.80) L 04/09/18 06:00 Hgb 11.4 gm/dL (12-16) L 04/09/18 06:00 Hct 33.7 % (41.0-60) L 04/09/18 06:00 MCV 90.1 fl (80-99) 04/09/18 06:00 MCH 30.5 pg (27.0-31.0) 04/09/18 06:00 MCHC Differential 33.8 pg (28.0-36.0) 04/09/18 06:00 RDW 14.2 % (11.5-20.0) 04/09/18 06:00 Plt Count 345 Th/cmm (150-400) 04/09/18 06:00 MPV 7.5 fl 04/09/18 06:00 Neutrophils % 64.2 % (40.0-80.0) 04/09/18 06:00 Lymphocytes % 22.1 % (20.0-50.0) 04/09/18 06:00 Monocytes % 8.2 % (2.0-10.0) 04/09/18 06:00 Eosinophils % 4.9 % (0.0-5.0) 04/09/18 06:00 Basophils % 0.6 % (0.0-2.0) 04/09/18 06:00 Sodium 139 mEq/L (136-145) 04/09/18 06:00 Potassium 3.8 mEq/L (3.5-5.1) 04/09/18 06:00 Chloride 108 mEq/L (98-107) H 04/09/18 06:00 Carbon Dioxide 27.1 mEq/L (21.0-31.0) 04/09/18 06:00 Anion Gap 7.7 (7.0-16.0) 04/09/18 06:00 BUN 10 mg/dL (7-25) 04/09/18 06:00 Creatinine 0.7 mg/dL (0.7-1.3) 04/09/18 06:00 Est GFR ( Amer) TNP 04/09/18 06:00 Est GFR (Non-Af Amer) TNP 04/09/18 06:00 BUN/Creatinine Ratio 14.3 04/09/18 06:00 Glucose 94 mg/dL (70-105) 04/09/18 06:00 Whole Bld Lactic Acid 0.70 mmol/L (0.60-1.99) 04/09/18 06:00 Calcium 8.5 mg/dL (8.6-10.3) L 04/09/18 06:00 Total Bilirubin 0.5 mg/dL (0.3-1.0) 04/09/18 06:00 AST 13 U/L (13-39) 04/09/18 06:00 ALT 10 U/L (7-52) 04/09/18 06:00 Alkaline Phosphatase 47 U/L (34-104) 04/09/18 06:00 Troponin I 0.01 ng/mL (0.01-0.05) 04/07/18 23:50 B-Natriuretic Peptide 174.0 pg/mL (5.0-100.0) H 04/07/18 23:50 Total Protein 5.2 gm/dL (6.0-8.3) L 04/09/18 06:00 Albumin 2.9 gm/dL (4.2-5.5) L 04/09/18 06:00 Globulin 2.3 gm/dL 04/09/18 06:00 Albumin/Globulin Ratio 1.3 (1.0-1.8) 04/09/18 06:00 TSH 0.91 uIU/ml (0.34-5.60) 04/09/18 06:00 Urine Source RANDOM 04/09/18 04:20 Urine Color STRAW 04/09/18 04:20 Urine Clarity TURBID (CLEAR) 04/09/18 04:20 Urine pH 7.5 (4.6 - 8.0) 04/09/18 04:20 Ur Specific [place] 1.010 (1.005-1.030) 04/09/18 04:20 Urine Protein NEGATIVE mg/dL (NEGATIVE) 04/09/18 04:20 Urine Glucose (UA) NEGATIVE mg/dL (NEGATIVE) 04/09/18 04:20 Urine Ketones NEGATIVE mg/dL (NEGATIVE) 04/09/18 04:20 Urine Blood TRACE (NEGATIVE) 04/09/18 04:20 Urine Nitrate NEGATIVE (NEGATIVE) 04/09/18 04:20 Urine Bilirubin NEGATIVE (NEGATIVE) 04/09/18 04:20 Urine Urobilinogen 0.2 E.U./dL (0.2 - 1.0) 04/09/18 04:20 Ur Leukocyte Esterase MODERATE (NEGATIVE) H 04/09/18 04:20 Urine RBC 0-2 /hpf (0-5) H 04/09/18 04:20 Urine WBC 10-25 /hpf (0-5) H 04/09/18 04:20 Ur Epithelial Cells OCCASIONAL /lpf (FEW) 04/09/18 04:20 Urine Bacteria 1+ /hpf (NONE SEEN) H 04/09/18 04:20 Urine Mucus FEW /lpf (FEW) 04/09/18 04:20 - Physical Exam Vitals and I&O: Vital Signs Temp 97.4 F 04/11/18 20:00 Pulse 70 04/11/18 20:00 Resp 18 04/11/18 20:00 BP 89/48 04/11/18 20:00 Pulse Ox 97 04/11/18 20:00 Intake & Output 04/11/18 04/11/18 04/12/18 06:59 18:59 06:59 Intake Total 200 596.667 Output Total 5 Balance 200 591.667 Weight (lbs) 48.625 kg 48.534 kg Intake: Intake, IV Amount 146.667 D5-0.9%Ns 1,000 ml @ 80 146.667 mls/hr IV .[id number] [facility] Rx #:[id number] Oral 200 450 Output: Urine 4 Stool 1 Other: # Voids 2 # Bowel Movements 0 Stool Characteristics Soft Brown Weight Source Bedscale Bedscale Active Medications: Current Medications Acetaminophen (Tylenol) 650 mg PO Q6HR PRN PRN Reason: Pain or Fever >101 Stop: 06/07/18 16:49 Last Admin: 04/11/18 08:28 Dose: 650 mg Ascorbic Acid (Vitamin C) 500 mg PO DAILY [facility] Stop: 06/08/18 08:59 Last Admin: 04/11/18 08:23 Dose: 500 mg Atorvastatin Calcium (Lipitor) 10 mg PO HS [facility]; Protocol Stop: 06/07/18 20:59 Last Admin: 04/11/18 21:25 Dose: 10 mg Bisacodyl (Dulcolax 10 Mg Supp) 10 mg RC DAILY PRN PRN Reason: Constipation Stop: 06/07/18 16:49 Cholecalciferol (Vitamin D3) 1,000 iu PO DAILY [facility] Stop: 06/08/18 08:59 Last Admin: 04/11/18 08:23 Dose: 1,000 iu Divalproex Sodium (Depakote Er) 250 mg PO DAILY [facility]; Protocol Stop: 06/08/18 08:59 Last Admin: 04/11/18 08:23 Dose: 250 mg Divalproex Sodium (Depakote Er) 500 mg PO HS [facility]; Protocol Stop: 06/07/18 20:59 Last Admin: 04/11/18 21:24 Dose: 500 mg Donepezil HCl (Aricept) 5 mg PO [facility] Stop: 06/07/18 20:59 Last Admin: 04/11/18 21:25 Dose: 5 mg Ferrous Sulfate (Iron) 325 mg PO DAILY [facility] Stop: 06/08/18 08:59 Last Admin: 04/11/18 08:24 Dose: 325 mg Dextrose/Sodium Chloride (D5-0.9%Ns) 1,000 mls @ 80 mls/hr IV .[id number] [facility] Stop: 06/07/18 01:59 Last Infusion: 04/11/18 18:59 Dose: 80 mls/hr Piperacillin Sod/Tazobactam (Sod 3.375 gm/ Sodium Chloride) 50 mls @ 100 mls/ hr IV Q8H [facility] Stop: 06/08/18 00:59 Last Admin: 04/11/18 00:23 Dose: 100 mls/hr Lactobacillus Rhamnosus (Culturelle 15b) 1 each PO DAILY [facility] Stop: 06/08/18 08:59 Last Admin: 04/11/18 08:24 Dose: 1 each Lactulose (Cephulac) 30 gm PO BID [facility] Stop: 06/08/18 08:59 Last Admin: 04/11/18 17:22 Dose: Not Given Magnesium Hydroxide (Milk Of Magnesia) 30 ml PO DAILY PRN PRN Reason: Constipation Stop: 06/07/18 16:49 Memantine (Namenda) 10 mg PO DAILY [facility] Stop: 06/08/18 08:59 Last Admin: 04/11/18 08:24 Dose: 10 mg Miscellaneous (Vte Chemical Prophylaxis Screen/ Admission) 1 ea PRN PRN PRN Reason: PROTOCOL Stop: 06/07/18 13:24 Miscellaneous (Probiotic Screen) 1 ea PRN PRN PRN Reason: PROTOCOL Stop: 06/08/18 08:44 Multivitamins/Vitamin C (Theragran) 1 tab PO DAILY [facility] Stop: 06/08/18 08:59 Last Admin: 04/11/18 08:24 Dose: 1 tab Nitroglycerin (Nitrostat) 0.4 mg SL Q5MIN PRN PRN Reason: Chest Pain Stop: 06/07/18 16:49 Pantoprazole Sodium (Protonix) 40 mg PO DAILY [facility] Stop: 06/08/18 08:59 Last Admin: 04/11/18 08:24 Dose: 40 mg Quetiapine Fumarate (Seroquel) 50 mg PO HS [facility]; Protocol Stop: 06/07/18 20:59 Last Admin: 04/11/18 21:25 Dose: 50 mg Zinc Sulfate (Zinc Sulfate) 220 mg PO DAILY [facility] Stop: 06/08/18 08:59 Last Admin: 04/11/18 08:24 Dose: 220 mg General: weak, lethargic, congested, demented, cachectic, NAD HEENT: NC/AT, PERRLA, EOMI, anicteric sclerae, throat clear Neck: Supple, No JVD, No thyromegaly, No LAD Lungs: congested, wheezing Cardiovascular: RRR, Normal S1, Normal S2 Abdomen: soft, non-tender, non-distended, positive bowel sound Extremities: clear, pedal pulses, rash, contracture, deformity Neurological: no change, lethargic, muscle weakness, unsteady, bedbound Internal Medicine Assmt/Plan - Assessment Assessment: UTI: C&S pending; continue IVPB ABX for now. ALOC: on and off; observe closely. Hypotension: etiology unclear; continue IVF. Failure to thrive: work up in progress. COPD: RT protocol. Dysphagia: better. CHF: mild, due to h/o CAd, s/o [place] Anxiety/ Psychosis. s/p partial small bowel resection about 5 years ago. Seizure: continue meds. DVT Prophylaxis. Nutritional Asmnt/Malnutr-PDOC - Dietary Evaluation Malnutrition Findings (Please click <Entered> for more info): Nutritional Asmnt/Malnutrition Start: 04/11/18 11: 45 Text: Status: Complete Freq: Protocol: Document 04/11/18 11:45 JOSE (Rec: 04/11/18 11:50 JOSE ADAME- [email or web address]) Nutritional Asmnt/Malnutrition Patient General Information Diagnosis ALOC, hypotension (RFV) Pertinent Medical Hx/Surgical Hx PMH: COPD, PNA, A-fib, seizure , mild psychosis, anxiety, UTI PSH: small bowel resection Subjective Information Pt aslep at time of visit Current Diet Order/ Nutrition Support MYRA 4g Na diet Pertinent Medications vit C, lipitor, D5NS @80ml/hr (1.92L/day, 326kcals/day) Pertinent Labs 04/09: Na 139, K 3.8, Cl 108, CO2 27.1, BUN 10, Cr 0.7, Ca 8 .5, glucose 94 Nutritional Hx/Data Height 1.65 m Height (Calculated Centimeters) 165.1 Current Weight (lbs) 48.534 kg Weight (Calculated Kilograms) 48.5 Weight (Calculated Grams) 85297.4 Body Mass Index (BMI) 17.8 GI Symptoms GI Symptoms None Last BM none noted Cultural/Ethnic/Oriental Orthodox Belief unknown Usual diet at home regular Skin Integrity/Comment: garcía score 15, intact Estimated Nutritional Goals BEE in Kcals: Using Current wt Calories/Kcals/Kg 30-35kcals/kg Kcals Calculated 1470-1715kcals/day Protein: Using Current wt Protein g/k-1.2g/kg Protein Calculated 49-59g/day Fluid: ml per MD Nutritional Problem 1. Problem Problem Underweight related to increased Etiology nutrient needs as evidenced by Signs/Symptoms: BMI 17.8 Intervention/Recommendation Comments Recommend continuing MYRA 4g Na diet Expected Outcomes/Goals Expected Outcomes/Goals PO intake >75% of meals
[2018-04-12 05:15] LABS: % BASOPHILS 0.9 % (0.0-2.0); % EOSINOPHILS 6.6 % (0.0-5.0); % MONOCYTES 7.2 % (2.0-10.0); % NEUTROPHILS 59.3 % (40.0-80.0); EOSINOPHILE ABSOLUTE 0.3 Th/cmm (0.1-0.4); HEMATOCRIT 32.4 % (41.0-60); HEMOGLOBIN 10.8 gm/dL (12-16); LYMPHOCYTE ABSOLUTE 1.4 Th/cmm (1.5-3.0); MEAN CELL VOLUME 89.6 fl (80-99); MEAN CORPUSCULAR HEMOGLOBIN 29.8 pg (27.0-31.0); MEAN CORPUSCULAR HGB CONC 33.3 pg (28.0-36.0); MEAN PLATELET VOLUME 7.3 fl; MONOCYTE ABSOLUTE 0.4 Th/cmm (0.3-1.0); NEUTROPHILE ABSOLUTE 3.2 Th/cmm (1.8-8.0); PLATELET COUNT 386 Th/cmm (150-400); RED BLOOD COUNT 3.62 Mil/cmm (3.80-5.80); RED CELL DISTRIBUTION WIDTH 13.9 % (11.5-20.0); WHITE BLOOD COUNT 5.3 Th/cmm (4.8-10.8)
[2018-04-12 05:33] LABS: ALBUMIN 2.7 gm/dL (4.2-5.5); ALKALINE PHOSPHATASE 39 U/L (34-104); ANION GAP 8.8 (7.0-16.0); BILIRUBIN,TOTAL 0.4 mg/dL (0.3-1.0); BUN - UREA NITROGEN 10 mg/dL (7-25); CALCIUM SERUM 8.3 mg/dL (8.6-10.3); CHLORIDE 112 mEq/L (98-107); CREATININE - SERUM 0.9 mg/dL (0.7-1.3); GLUCOSE 85 mg/dL (70-105); POTASSIUM SERUM 3.8 mEq/L (3.5-5.1); SGOT 12 U/L (13-39); SGPT/ALT 10 U/L (7-52); SODIUM SERUM 143 mEq/L (136-145); TOTAL PROTEIN,SERUM 5.3 gm/dL (6.0-8.3)
[2018-04-12] MEDS: D5-0.9%NS 1,000 ML IV SCH (07:04)
[2018-04-12] MEDS: Ferrous Sulfate 325 MG TAB PO SCH (10:11)
[2018-04-12] MEDS: Lactobacillus Rhamnosus GG 15 Billion CFU CAP.SPRINK PO SCH (10:11)
[2018-04-12] MEDS: Pantoprazole 40 mg EC Tab PO SCH (10:12)
[2018-04-12] MEDS: Lactulose 10 Gm/15 mL 30mL UDC PO SCH ×3 (10:12→18:21)
[2018-04-12] MEDS: Multivitamin Tab PO SCH (10:12)
[2018-04-12] MEDS: Atorvastatin Calcium 10 MG TAB PO SCH (23:04)
--- NOTE | 2018-04-12 23:42 | Internal Medicine Prog Note ---
Internal Medicine Subjective - Subjective Service Date: 04/12/18 Patient seen and examined:: without staff Patient is:: awake, verbal, agitated, congested Patient Complaints of:: congestion, cough, headache Per staff patient has:: no adverse event Internal Medicine Objective - Results Result Diagrams: 04/12/18 05:05 04/12/18 05:05 Recent Labs: Laboratory Last Values WBC 5.3 Th/cmm (4.8-10.8) 04/12/18 05:05 RBC 3.62 Mil/cmm (3.80-5.80) L 04/12/18 05:05 Hgb 10.8 gm/dL (12-16) L 04/12/18 05:05 Hct 32.4 % (41.0-60) L 04/12/18 05:05 MCV 89.6 fl (80-99) 04/12/18 05:05 MCH 29.8 pg (27.0-31.0) 04/12/18 05:05 MCHC Differential 33.3 pg (28.0-36.0) 04/12/18 05:05 RDW 13.9 % (11.5-20.0) 04/12/18 05:05 Plt Count 386 Th/cmm (150-400) 04/12/18 05:05 MPV 7.3 fl 04/12/18 05:05 Neutrophils % 59.3 % (40.0-80.0) 04/12/18 05:05 Lymphocytes % 26.0 % (20.0-50.0) 04/12/18 05:05 Monocytes % 7.2 % (2.0-10.0) 04/12/18 05:05 Eosinophils % 6.6 % (0.0-5.0) H 04/12/18 05:05 Basophils % 0.9 % (0.0-2.0) 04/12/18 05:05 Sodium 143 mEq/L (136-145) 04/12/18 05:05 Potassium 3.8 mEq/L (3.5-5.1) 04/12/18 05:05 Chloride 112 mEq/L (98-107) H 04/12/18 05:05 Carbon Dioxide 26.0 mEq/L (21.0-31.0) 04/12/18 05:05 Anion Gap 8.8 (7.0-16.0) 04/12/18 05:05 BUN 10 mg/dL (7-25) 04/12/18 05:05 Creatinine 0.9 mg/dL (0.7-1.3) 04/12/18 05:05 Est GFR ( Amer) TNP 04/12/18 05:05 Est GFR (Non-Af Amer) TNP 04/12/18 05:05 BUN/Creatinine Ratio 11.1 04/12/18 05:05 Glucose 85 mg/dL (70-105) 04/12/18 05:05 Whole Bld Lactic Acid 0.70 mmol/L (0.60-1.99) 04/09/18 06:00 Calcium 8.3 mg/dL (8.6-10.3) L 04/12/18 05:05 Total Bilirubin 0.4 mg/dL (0.3-1.0) 04/12/18 05:05 AST 12 U/L (13-39) L 04/12/18 05:05 ALT 10 U/L (7-52) 04/12/18 05:05 Alkaline Phosphatase 39 U/L (34-104) 04/12/18 05:05 Troponin I 0.01 ng/mL (0.01-0.05) 04/07/18 23:50 B-Natriuretic Peptide 174.0 pg/mL (5.0-100.0) H 04/07/18 23:50 Total Protein 5.3 gm/dL (6.0-8.3) L 04/12/18 05:05 Albumin 2.7 gm/dL (4.2-5.5) L 04/12/18 05:05 Globulin 2.6 gm/dL 04/12/18 05:05 Albumin/Globulin Ratio 1.0 (1.0-1.8) 04/12/18 05:05 TSH 0.91 uIU/ml (0.34-5.60) 04/09/18 06:00 Urine Source RANDOM 04/09/18 04:20 Urine Color STRAW 04/09/18 04:20 Urine Clarity TURBID (CLEAR) 04/09/18 04:20 Urine pH 7.5 (4.6 - 8.0) 04/09/18 04:20 Ur Specific [place] 1.010 (1.005-1.030) 04/09/18 04:20 Urine Protein NEGATIVE mg/dL (NEGATIVE) 04/09/18 04:20 Urine Glucose (UA) NEGATIVE mg/dL (NEGATIVE) 04/09/18 04:20 Urine Ketones NEGATIVE mg/dL (NEGATIVE) 04/09/18 04:20 Urine Blood TRACE (NEGATIVE) 04/09/18 04:20 Urine Nitrate NEGATIVE (NEGATIVE) 04/09/18 04:20 Urine Bilirubin NEGATIVE (NEGATIVE) 04/09/18 04:20 Urine Urobilinogen 0.2 E.U./dL (0.2 - 1.0) 04/09/18 04:20 Ur Leukocyte Esterase MODERATE (NEGATIVE) H 04/09/18 04:20 Urine RBC 0-2 /hpf (0-5) H 04/09/18 04:20 Urine WBC 10-25 /hpf (0-5) H 04/09/18 04:20 Ur Epithelial Cells OCCASIONAL /lpf (FEW) 04/09/18 04:20 Urine Bacteria 1+ /hpf (NONE SEEN) H 04/09/18 04:20 Urine Mucus FEW /lpf (FEW) 04/09/18 04:20 - Physical Exam Vitals and I&O: Vital Signs Temp 98.6 F 04/12/18 16:42 Pulse 59 04/12/18 16:42 Resp 17 04/12/18 16:42 BP 99/59 04/12/18 16:42 Pulse Ox 98 04/12/18 16:42 Intake & Output 04/12/18 04/12/18 04/13/18 06:59 18:59 06:59 Intake Total 853.333 150 350 Output Total 1 Balance 853.333 149 350 Weight (lbs) 46.72 kg 46.72 kg 46.72 kg Intake: Intake, IV Amount 853.333 D5-0.9%Ns 1,000 ml @ 80 853.333 mls/hr IV .[id number] [facility] Rx #:[id number] Oral 150 350 Output: Stool 1 Other: # Voids 4 4 # Bowel Movements 1 Stool Characteristics Soft Brown Weight Source Bedscale Bedscale Bedscale Active Medications: Current Medications Acetaminophen (Tylenol) 650 mg PO Q6HR PRN PRN Reason: Pain or Fever >101 Stop: 06/07/18 16:49 Last Admin: 04/11/18 08:28 Dose: 650 mg Ascorbic Acid (Vitamin C) 500 mg PO DAILY [facility] Stop: 06/08/18 08:59 Last Admin: 04/12/18 10:11 Dose: 500 mg Atorvastatin Calcium (Lipitor) 10 mg PO HS [facility]; Protocol Stop: 06/07/18 20:59 Last Admin: 04/12/18 23:04 Dose: 10 mg Bisacodyl (Dulcolax 10 Mg Supp) 10 mg RC DAILY PRN PRN Reason: Constipation Stop: 06/07/18 16:49 Cholecalciferol (Vitamin D3) 1,000 iu PO DAILY [facility] Stop: 06/08/18 08:59 Last Admin: 04/12/18 10:11 Dose: 1,000 iu Divalproex Sodium (Depakote Er) 250 mg PO DAILY [facility]; Protocol Stop: 06/08/18 08:59 Last Admin: 04/12/18 10:09 Dose: 250 mg Divalproex Sodium (Depakote Er) 500 mg PO HS [facility]; Protocol Stop: 06/07/18 20:59 Last Admin: 04/12/18 23:03 Dose: 500 mg Donepezil HCl (Aricept) 5 mg PO HS [facility] Stop: 06/07/18 20:59 Last Admin: 04/12/18 23:03 Dose: 5 mg Ferrous Sulfate (Iron) 325 mg PO DAILY [facility] Stop: 06/08/18 08:59 Last Admin: 04/12/18 10:11 Dose: 325 mg Dextrose/Sodium Chloride (D5-0.9%Ns) 1,000 mls @ 80 mls/hr IV .[id number] [facility] Stop: 06/07/18 01:59 Last Admin: 04/12/18 07:04 Dose: 80 mls/hr Piperacillin Sod/Tazobactam (Sod 3.375 gm/ Sodium Chloride) 50 mls @ 100 mls/ hr IV Q8H [facility] Stop: 06/08/18 00:59 Last Admin: 04/12/18 00:42 Dose: 100 mls/hr Lactobacillus Rhamnosus (Culturelle 15b) 1 each PO DAILY [facility] Stop: 06/08/18 08:59 Last Admin: 04/12/18 10:11 Dose: 1 each Lactulose (Cephulac) 30 gm PO BID [facility] Stop: 06/08/18 08:59 Last Admin: 04/12/18 18:21 Dose: Not Given Lorazepam (Ativan) 0.5 mg IVP Q6H PRN; Protocol PRN Reason: Agitation Stop: 06/11/18 22:29 Last Admin: 04/12/18 22:30 Dose: 0.5 mg Magnesium Hydroxide (Milk Of Magnesia) 30 ml PO DAILY PRN PRN Reason: Constipation Stop: 06/07/18 16:49 Memantine (Namenda) 10 mg PO DAILY [facility] Stop: 06/08/18 08:59 Last Admin: 04/12/18 10:09 Dose: 10 mg Miscellaneous (Vte Chemical Prophylaxis Screen/ Admission) 1 ea PRN PRN PRN Reason: PROTOCOL Stop: 06/07/18 13:24 Miscellaneous (Probiotic Screen) 1 ea PRN PRN PRN Reason: PROTOCOL Stop: 06/08/18 08:44 Multivitamins/Vitamin C (Theragran) 1 tab PO DAILY [facility] Stop: 06/08/18 08:59 Last Admin: 04/12/18 10:12 Dose: 1 tab Nitroglycerin (Nitrostat) 0.4 mg SL Q5MIN PRN PRN Reason: Chest Pain Stop: 06/07/18 16:49 Pantoprazole Sodium (Protonix) 40 mg PO DAILY [facility] Stop: 06/08/18 08:59 Last Admin: 04/12/18 10:12 Dose: 40 mg Quetiapine Fumarate (Seroquel) 50 mg PO HS [facility]; Protocol Stop: 06/07/18 20:59 Last Admin: 04/12/18 23:03 Dose: 50 mg Zinc Sulfate (Zinc Sulfate) 220 mg PO DAILY [facility] Stop: 06/08/18 08:59 Last Admin: 04/12/18 10:12 Dose: 220 mg General: weak, lethargic, congested, demented, cachectic, NAD HEENT: NC/AT, PERRLA, EOMI, anicteric sclerae, throat clear Neck: Supple, No JVD, No thyromegaly, No LAD Lungs: congested, wheezing Cardiovascular: RRR, Normal S1, Normal S2 Abdomen: soft, non-tender, non-distended, positive bowel sound Extremities: clear, pedal pulses, rash, contracture, deformity Neurological: no change, lethargic, muscle weakness, unsteady, bedbound Internal Medicine Assmt/Plan - Assessment Assessment: ALOC: on and off; observe closely. UTI: C&S pending; continue IVPB ABX for now. Hypotension: etiology unclear; continue IVF. Failure to thrive: work up in progress. COPD: RT protocol. Dysphagia: better. CHF: mild, due to h/o CAd, s/o [place] Anxiety/ Psychosis. s/p partial small bowel resection about 5 years ago. Seizure: continue meds. DVT Prophylaxis. Nutritional Asmnt/Malnutr-PDOC - Dietary Evaluation Malnutrition Findings (Please click <Entered> for more info): Nutritional Asmnt/Malnutrition Start: 04/11/18 11: 45 Text: Status: Complete Freq: Protocol: Document 04/11/18 11:45 JOSE (Rec: 04/11/18 11:50 JOSE ADAME- FNS1) Nutritional Asmnt/Malnutrition Patient General Information Diagnosis ALOC, hypotension (RFV) Pertinent Medical Hx/Surgical Hx PMH: COPD, PNA, A-fib, seizure , mild psychosis, anxiety, UTI PSH: small bowel resection Subjective Information Pt aslep at time of visit Current Diet Order/ Nutrition Support MYRA 4g Na diet Pertinent Medications vit C, lipitor, D5NS @80ml/hr (1.92L/day, 326kcals/day) Pertinent Labs 04/09: Na 139, K 3.8, Cl 108, CO2 27.1, BUN 10, Cr 0.7, Ca 8 .5, glucose 94 Nutritional Hx/Data Height 1.65 m Height (Calculated Centimeters) 165.1 Current Weight (lbs) 48.534 kg Weight (Calculated Kilograms) 48.5 Weight (Calculated Grams) 89571.4 Body Mass Index (BMI) 17.8 GI Symptoms GI Symptoms None Last BM none noted Cultural/Ethnic/Muslim Belief unknown Usual diet at home regular Skin Integrity/Comment: garcía score 15, intact Estimated Nutritional Goals BEE in Kcals: Using Current wt Calories/Kcals/Kg 30-35kcals/kg Kcals Calculated 1470-1715kcals/day Protein: Using Current wt Protein g/k-1.2g/kg Protein Calculated 49-59g/day Fluid: ml per MD Nutritional Problem 1. Problem Problem Underweight related to increased Etiology nutrient needs as evidenced by Signs/Symptoms: BMI 17.8 Intervention/Recommendation Comments Recommend continuing MYRA 4g Na diet Expected Outcomes/Goals Expected Outcomes/Goals PO intake >75% of meals
[2018-04-13] MEDS: Multivitamin Tab PO SCH (10:14)
[2018-04-13] MEDS: Ferrous Sulfate 325 MG TAB PO SCH (10:14)
[2018-04-13] MEDS: Pantoprazole 40 mg EC Tab PO SCH (10:39)
[2018-04-13] MEDS: Lactobacillus Rhamnosus GG 15 Billion CFU CAP.SPRINK PO SCH (10:39)
[2018-04-13] MEDS: Lactulose 10 Gm/15 mL 30mL UDC PO SCH ×2 (10:43→18:22)
--- NOTE | 2018-04-21 11:52 | Discharge Summary ---
Date of admission: 04/08/2018 DATE OF DISCHARGE: 04/13/2018 Final DIAGNOSES: 1. Hypotension: improved. 2. COPD: received RT Protocol and improved. 3. UTI: on IVPB ABX 4. Noncompliance: improved. 5. Altered level of conscious: improved. 6. Dysphagia: improved. HOSPITAL COURSE: This 77-year-old male admitted to hypotension, ALOC, UTI, COPD , CHF, etc. The patient was very confused and agitated initially. He received IVF and IVPB ABX and RT protocol. The pt was noncompliant from time to time. With proper treatment, the pt's conditions improved. He was discharged to [facility] in [place], DISCHARGE CONDITION: Stable. DISPOSITION: [facility]. Discharge Medication: continue all meds from here. Follow up: same day in [facility]. JOB# [id number] SUPA
== END 2018-04-13 21:00 | DRG 871 ==
LOC: ER 23:22 → TELE 04-08 01:15
PROVIDERS: ADMIT Internal Medicine; ATTEND Internal Medicine
DX: A41.9 Sepsis, unspecified organism (principal); G93.41 Metabolic encephalopathy; N39.0 Urinary tract infection, site not specified; Z68.1 Body mass index [BMI] 19.9 or less, adult; I95.9 Hypotension, unspecified; E86.0 Dehydration; J44.9 Chronic obstructive pulmonary disease, unspecified; R62.7 Adult failure to thrive; R13.10 Dysphagia, unspecified; I25.10 Atherosclerotic heart disease of native coronary artery without angina pectoris; I50.9 Heart failure, unspecified; E78.5 Hyperlipidemia, unspecified; K21.9 Gastro-esophageal reflux disease without esophagitis; F03.90 Unspecified dementia, unspecified severity, without behavioral disturbance, psychotic disturbance, mood disturbance, and anxiety; I48.91 Unspecified atrial fibrillation; E87.6 Hypokalemia; D64.9 Anemia, unspecified; R56.9 Unspecified convulsions; F29 Unspecified psychosis not due to a substance or known physiological condition; Z91.19 Patient's noncompliance with other medical treatment and regimen
CPT/HCPCS: 36415-UA; 71045-TC; 80053-TC; 81001-TC; 83605; 83880-TC; 84443-TC; 84484-TC; 85025-TC; 87086-90; 93005; J2060; J2543; J7030; J7042; Z7610

== ENCOUNTER 2018-08-20 22:28 | Inpatient (IN) | payer MEDICARE, MEDICAID ==
--- NOTE | 2018-08-20 23:01 | ED Physician Chart ---
ED Chief Complaint/HPI - Patient Information Date Seen:: 08/20/18 Time Seen:: 22:45 Chief Complaint:: anorexia and increasing confusion History of Present Illness:: Patient's had anorexia and increasing confusion recently. He he's had a 10 pound weight loss over the last 2 months. He denies abdominal pain at present. Allergies:: Allergies Allergy/AdvReac Type Severity Reaction Status Date / Time No Known Allergies Allergy Verified 04/07/18 23:38 Vitals:: Vital Signs - 8 hr 08/20/18 22:30 Temp 97.8 F HR 82 RR 16 BP 102/65 O2 Sat % 95 Historian:: Patient, EMS Review:: Transfer documents Reviewed ED Review of Systems - Review of Systems General/Constitutional: No fever, No chills Skin: No skin lesions Head: No headache Eyes: No loss of vision ENT: No earache Neck: No neck pain Cardio Vascular: No chest pain Pulmonary: No SOB GI: No nausea, No vomiting, No diarrhea, No pain, Other (anorexia) G/U: No dysuria Musculoskeletal: No bone or joint pain Endocrine: No polyuria, No polydipsia Psychiatric: Prior psych history Hematopoietic: No bruising Allergic/Immuno: No urticaria Neurological: No syncope ED Past Medical History - Past Medical History Past Medical History: CHF, PUD/GERD, Seizures, Other (status post CVA; COPD; seizures; atrial fibrillation; psychosis; abolishes cephalopathy; history of angina; cachexia; anemia; hypothyroidism; respiratory failure;) Family History: Other (unavailable) Social History: Smoker, Care Facility Surgical History: other (unavailable ) Psychiatricy History: Dementia Family Medical History - Family Member Mother History Unknown: Yes Ethnicity: ED Physical Exam - Physical Examination General/Constitutional: Alert Other Gen/Cons comments:: Patient is confused. He does not know the correct date Head: Atraumatic Eyes: Lids, conjuctiva normal Skin: Nl inspection, No rash, No skin lesions, No ecchymosis ENMT: External ears, nose nl Neck: No nuchal rigidity Respiratory: Nl effort/Exclusion, Clear to Auscultation, No Wheeze/Rhonchi/Rales Cardio Vascular: RRR GI: No tenderness/rebounding/guarding, No organomegaly, No hernia, Normal BS's, Nondistended, No McBurney tenderness Extremities: Normal digits & nails Neuro/Psych: No focal deficits ED Labs/Radiology/EKG Results - Lab Results Results: Abnormal Lab Results 08/20/18 23:30 WBC 5.6 RBC 4.19 Hgb 13.1 Hct 38.9 L MCV 93.0 MCH 31.3 H MCHC Differential 33.7 RDW 13.7 Plt Count 212 MPV 7.8 Neutrophils % 52.9 Lymphocytes % 36.7 Monocytes % 6.8 Eosinophils % 3.3 Basophils % 0.3 Abnormal Lab Results 08/20/18 08/20/18 08/20/18 23:30 23:30 23:30 WBC 5.6 RBC 4.19 Hgb 13.1 Hct 38.9 L MCV 93.0 MCH 31.3 H MCHC Differential 33.7 RDW 13.7 Plt Count 212 MPV 7.8 Neutrophils % 52.9 Lymphocytes % 36.7 Monocytes % 6.8 Eosinophils % 3.3 Basophils % 0.3 Sodium 140 Potassium 3.9 Chloride 109 H Carbon Dioxide 26.8 Anion Gap 8.1 BUN 28 H Creatinine 0.9 Est GFR ( Amer) TNP Est GFR (Non-Af Amer) TNP BUN/Creatinine Ratio 31.1 Glucose 79 Calcium 8.8 Ammonia 72 H Lipase 20 - Radiology Results Results: Chest x-ray negative; CT scan of abdomen and pelvis showed numerous chronic appearing compression fractures ED Septic Shock - . Is Septic Shock (SBP<90, OR Lactate>4 mmol\L) present?: No - <6hrs of presentation: Vital Signs: Vital Signs - 8 hr 08/20/18 22:30 Temp 97.8 F HR 82 RR 16 BP 102/65 O2 Sat % 95 ED Reassessment (Disposition) - Reassessment Reassessment Condition:: Unchanged - Diagnosis Diagnosis:: Hepatic encephalopathy; multiple thoracic or lumbar compression fractures - Patient Disposition Admitted to:: Telemetry Admitting Medical Physician:: Christopher Garsia Condition at Disposition:: Stable, Unchanged
[2018-08-20 23:40] LABS: % BASOPHILS 0.3 % (0.0-2.0); % EOSINOPHILS 3.3 % (0.0-5.0); % LYMPHOCYTES 36.7 % (20.0-50.0); % MONOCYTES 6.8 % (2.0-10.0); % NEUTROPHILS 52.9 % (40.0-80.0); EOSINOPHILE ABSOLUTE 0.2 Th/cmm (0.1-0.4); HEMATOCRIT 38.9 % (41.0-60); HEMOGLOBIN 13.1 gm/dL (12-16); LYMPHOCYTE ABSOLUTE 2.1 Th/cmm (1.5-3.0); MEAN CORPUSCULAR HEMOGLOBIN 31.3 pg (27.0-31.0); MEAN CORPUSCULAR HGB CONC 33.7 pg (28.0-36.0); MEAN PLATELET VOLUME 7.8 fl; MONOCYTE ABSOLUTE 0.4 Th/cmm (0.3-1.0); NEUTROPHILE ABSOLUTE 2.9 Th/cmm (1.8-8.0); PLATELET COUNT 212 Th/cmm (150-400); RED BLOOD COUNT 4.19 Mil/cmm (3.80-5.80); RED CELL DISTRIBUTION WIDTH 13.7 % (11.5-20.0); WHITE BLOOD COUNT 5.6 Th/cmm (4.8-10.8)
[2018-08-20 23:52] LABS: ANION GAP 8.1 (7.0-16.0); BUN - UREA NITROGEN 28 mg/dL (7-25); CALCIUM SERUM 8.8 mg/dL (8.6-10.3); CARBON DIOXIDE 26.8 mEq/L (21.0-31.0); CHLORIDE 109 mEq/L (98-107); CREATININE - SERUM 0.9 mg/dL (0.7-1.3); GLUCOSE 79 mg/dL (70-105); LIPASE 20 U/L (11-82); POTASSIUM SERUM 3.9 mEq/L (3.5-5.1); SODIUM SERUM 140 mEq/L (136-145)
[2018-08-21 06:31] LABS: URINE SOURCE RANDOM
[2018-08-21 06:51] LABS: URINE BILIRUBIN NEGATIVE (NEGATIVE); URINE BLOOD NEGATIVE (NEGATIVE); URINE GLUCOSE (UA) NEGATIVE (NEGATIVE); URINE KETONE NEGATIVE (NEGATIVE); URINE LEUKOCYTE ESTERASE NEGATIVE (NEGATIVE); URINE NITRATE NEGATIVE (NEGATIVE); URINE PH 6.5 (4.6 - 8.0); URINE PROTEIN NEGATIVE (NEGATIVE); URINE UROBILINOGEN 0.2 E.U./dL (0.2 - 1.0)
[2018-08-21 06:58] LABS: URINE CLARITY CLEAR (CLEAR); URINE COLOR YELLOW; URINE MICROSCOPIC INDICATED? NO
[2018-08-21] MEDS ORDERED: Magnesium Hydroxide (MOM) 30 mL UDC PO PRN (08:05)
[2018-08-21] MEDS ORDERED: Albuterol/Ipratropium Neb 3 ML AERS HHN PRN (08:25)
--- NOTE | 2018-08-21 08:44 | Diagnostic Imaging Report ---
CT abdomen and pelvis without intravenous contrast Indication: Abdominal pain, history of partial small bowel obstruction Comparison: None, Technique: Axial images were obtained from the lung bases to the bilateral proximal femurs without IV contrast. Coronal reconstructions were made. total DLP: 431, CTDI9.5 FINDINGS: Bibasal passive atelectasis versus infiltrates are noted. Exam is limited due to body habitus and positioning. Exam is also limited due to lack of IV contrast. No obvious focal hepatic lesions. Patient status post cholecystectomy. Limited assessment of the spleen demonstrate no obvious focal lesions. There is suboptimal assessment of pancreas. No discrete focal lesions. No focal adrenal lesions. 7 mm nonobstructive left renal stone is noted. Distended urinary bladder is noted. There is close apposition of bowel loops along the right groin region without discrete herniation. Copious amount of stool throughout the colon with mild distal fecal impaction. No appendicitis. No free air or free fluid. Moderate atherosclerosis is noted. Advanced degenerative changes of the spine are noted with multilevel moderate to advanced old compression fractures. This is most pronounced at L1 with estimated 90% loss of height and 3 mm retropulsion. Postsurgical changes of left femur are noted. Old pelvic fractures are noted. IMPRESSION: Limited exam due to lack of IV and oral contrast. Copious stool is seen throughout the colon. Please correlate clinically for constipation. Close apposition of bowel loops along the right groin region without discrete herniation identified. No definite evidence of small bowel obstruction, however, if indicated a follow-up CT exam with oral contrast may also be obtained. 7 mm nonobstructive left renal stone. Evidence of prior cholecystectomy. Multiple spinal compression fractures most pronounced at L1 with estimated 90% loss of height and 3 mm retropulsion. Osteopenia is also noted. Bibasilar passive atelectasis versus less likely infiltrates.
--- NOTE | 2018-08-21 08:50 | Diagnostic Imaging Report ---
CHEST X-RAY: AP view INDICATION: Pneumonia COMPARISON: Chest x-ray 04/07/2018 FINDINGS: Increased interstitial lung markings are noted with suboptimal lung volumes. No focal consolidation or effusions. Mild cardiomegaly is noted. Exam is limited due to rotation. Old left proximal humeral fracture is noted. IMPRESSION: Increased interstitial lung markings favoring chronic lung changes. A marginal degree of congestion is less likely. Mild cardiomegaly.
[2018-08-21] MEDS ORDERED: Non-Formulary Item 1 EA (Cranberry Fruit Concentrate [Cranberry] 450 MG) PO SCH (09:00)
[2018-08-21] MEDS: Multivitamin Tab PO SCH (12:50)
[2018-08-21] MEDS: Ferrous Sulfate 325 MG TAB PO SCH (12:50)
[2018-08-21] MEDS: Lactobacillus Rhamnosus GG 15 Billion CFU CAP.SPRINK PO SCH (12:51)
[2018-08-21] MEDS: Calcium Carb/Vit D 500 mg/200 U Tab PO SCH (12:51)
[2018-08-21] MEDS ORDERED: VTE Chemical Prophylaxis Screen/Admission MC PRN (12:59)
[2018-08-21] MEDS: Atorvastatin Calcium 10 MG TAB PO SCH (21:38)
--- NOTE | 2018-08-21 23:01 | History & Physical ---
ADMIT DATE: 08/21/2018 CHIEF COMPLAINT: Abdominal pain of 7/10 by the patient, confusion and weakness by the nursing staff. HISTORY OF PRESENT ILLNESS: The patient is a 77-year-old male admitted from the Emergency Room into telemetry floor of [facility] [place] due to multiple complicated medical conditions. In the half-way, the patient was complaining of 7-8/10 abdominal pain. However, on physical examination, his abdomen appears to be benign. Abdominal and pelvic CT scan done revealed copious stool throughout the colon suggesting constipation. There is also close apposition of bowel loops along the right region without discrete hernia identified as well as multiple spinal compression fracture. Chest x-ray done revealed chronic lung disease with marginal degree of congestion. Lab morris, the patient's ammonia is elevated to 72. He is also slightly dehydrated with a BUN 28, creatinine 0.9. ASSESSMENT AND PLAN: 1. Abdominal pain: The CT scan of abdomen was pretty much unremarkable and suggesting constipation. We will make sure the patient has bowel movement. 2. Altered level of consciousness, metabolic encephalopathy, and dementia. 3. Severe weakness: Fall precaution and physical therapy. 4. Elevated ammonia level: We will repeat ammonia level. 5. Chronic obstructive pulmonary disease: RT protocol. 6. Seizure disorder: Fall precaution. Adjust medication as needed. 7. Deep vein thrombosis prophylaxis. JOB# [id number]
[2018-08-21] MEDS: D5-0.9%NS 1,000 ML IV SCH (23:25)
[2018-08-22] MEDS: Lactobacillus Rhamnosus GG 15 Billion CFU CAP.SPRINK PO SCH (09:41)
[2018-08-22] MEDS: Ferrous Sulfate 325 MG TAB PO SCH (09:41)
[2018-08-22] MEDS: Calcium Carb/Vit D 500 mg/200 U Tab PO SCH (09:41)
[2018-08-22] MEDS: Multivitamin Tab PO SCH (09:42)
[2018-08-22] MEDS: Atorvastatin Calcium 10 MG TAB PO SCH (22:09)
[2018-08-22] MEDS: D5-0.9%NS 1,000 ML IV SCH (22:35)
--- NOTE | 2018-08-22 23:39 | Internal Medicine Prog Note ---
Internal Medicine Subjective - Subjective Service Date: 08/22/18 Patient seen and examined:: without staff Patient is:: asleep, non-interactive, in bed Per staff patient has:: no adverse event Internal Medicine Objective - Results Result Diagrams: 08/20/18 23:30 08/20/18 23:30 Recent Labs: Laboratory Last Values WBC 5.6 Th/cmm (4.8-10.8) 08/20/18 23:30 RBC 4.19 Mil/cmm (3.80-5.80) 08/20/18 23:30 Hgb 13.1 gm/dL (12-16) 08/20/18 23:30 Hct 38.9 % (41.0-60) L 08/20/18 23:30 MCV 93.0 fl (80-99) 08/20/18 23:30 MCH 31.3 pg (27.0-31.0) H 08/20/18 23:30 MCHC Differential 33.7 pg (28.0-36.0) 08/20/18 23:30 RDW 13.7 % (11.5-20.0) 08/20/18 23:30 Plt Count 212 Th/cmm (150-400) 08/20/18 23:30 MPV 7.8 fl 08/20/18 23:30 Neutrophils % 52.9 % (40.0-80.0) 08/20/18 23:30 Lymphocytes % 36.7 % (20.0-50.0) 08/20/18 23:30 Monocytes % 6.8 % (2.0-10.0) 08/20/18 23:30 Eosinophils % 3.3 % (0.0-5.0) 08/20/18 23:30 Basophils % 0.3 % (0.0-2.0) 08/20/18 23:30 Sodium 140 mEq/L (136-145) 08/20/18 23:30 Potassium 3.9 mEq/L (3.5-5.1) 08/20/18 23:30 Chloride 109 mEq/L (98-107) H 08/20/18 23:30 Carbon Dioxide 26.8 mEq/L (21.0-31.0) 08/20/18 23:30 Anion Gap 8.1 (7.0-16.0) 08/20/18 23:30 BUN 28 mg/dL (7-25) H 08/20/18 23:30 Creatinine 0.9 mg/dL (0.7-1.3) 08/20/18 23:30 Est GFR ( Amer) TNP 08/20/18 23:30 Est GFR (Non-Af Amer) TNP 08/20/18 23:30 BUN/Creatinine Ratio 31.1 08/20/18 23:30 Glucose 79 mg/dL (70-105) 08/20/18 23:30 Calcium 8.8 mg/dL (8.6-10.3) 08/20/18 23:30 Ammonia 40 umol/L (16-53) 08/22/18 06:50 B-Natriuretic Peptide 73.5 pg/mL (5.0-100.0) 08/21/18 21:11 Lipase 20 U/L (11-82) 08/20/18 23:30 TSH 1.30 uIU/ml (0.34-5.60) 08/21/18 09:06 Urine Source RANDOM 08/21/18 06:18 Urine Color YELLOW 08/21/18 06:18 Urine Clarity CLEAR (CLEAR) 08/21/18 06:18 Urine pH 6.5 (4.6 - 8.0) 08/21/18 06:18 Ur Specific [place] 1.010 (1.005-1.030) 08/21/18 06:18 Urine Protein NEGATIVE mg/dL (NEGATIVE) 08/21/18 06:18 Urine Glucose (UA) NEGATIVE mg/dL (NEGATIVE) 08/21/18 06:18 Urine Ketones NEGATIVE mg/dL (NEGATIVE) 08/21/18 06:18 Urine Blood NEGATIVE (NEGATIVE) 08/21/18 06:18 Urine Nitrate NEGATIVE (NEGATIVE) 08/21/18 06:18 Urine Bilirubin NEGATIVE (NEGATIVE) 08/21/18 06:18 Urine Urobilinogen 0.2 E.U./dL (0.2 - 1.0) 08/21/18 06:18 Ur Leukocyte Esterase NEGATIVE (NEGATIVE) 08/21/18 06:18 - Physical Exam Vitals and I&O: Vital Signs Temp 98.1 F 08/22/18 16:00 Pulse 77 08/22/18 19:30 Resp 180 08/22/18 19:30 BP 94/46 08/22/18 16:00 Pulse Ox 93 08/22/18 19:30 Intake & Output 08/22/18 08/22/18 08/23/18 06:59 18:59 06:59 Intake Total 200 1900 Balance 200 1900 Weight (lbs) 41.277 kg 41.277 kg Intake: Intake, IV Amount 1000 D5-0.9%Ns 1,000 ml @ 80 1000 mls/hr IV .[id number] [facility] Rx #:[id number] Oral 200 900 Other: # Voids 2 3 # Bowel Movements 0 0 Weight Source Bedscale Bedscale Active Medications: Current Medications Acetaminophen (Tylenol) 650 mg PO Q6HR PRN PRN Reason: Pain or Fever >101 Stop: 10/20/18 08:01 Albuterol/Ipratropium (Duoneb Neb) 3 ml HHN Q4H PRN PRN Reason: Wheezing Stop: 10/20/18 08:24 Ascorbic Acid (Vitamin C) 500 mg PO DAILY [facility] Stop: 10/20/18 08:59 Last Admin: 08/22/18 09:41 Dose: 500 mg Atorvastatin Calcium (Lipitor) 10 mg PO HS [facility]; Protocol Stop: 10/20/18 20:59 Last Admin: 08/22/18 22:09 Dose: 10 mg Bisacodyl (Dulcolax 10 Mg Supp) 10 mg RC DAILY PRN PRN Reason: Constipation Stop: 10/20/18 08:01 Calcium/Vitamin D (Oscal W/Vitamin D) 1 tab PO DAILY [facility] Stop: 10/20/18 08:59 Last Admin: 08/22/18 09:41 Dose: 1 tab Cholecalciferol (Vitamin D3) 1,000 iu PO DAILY [facility] Stop: 10/20/18 10:59 Last Admin: 08/22/18 09:41 Dose: 1,000 iu Divalproex Sodium (Depakote Er) 250 mg PO DAILY [facility]; Protocol Stop: 10/20/18 08:59 Divalproex Sodium (Depakote Er) 500 mg PO HS [facility]; Protocol Stop: 10/20/18 20:59 Docusate Sodium (Colace) 100 mg PO DAILY [facility] Stop: 10/20/18 08:59 Last Admin: 08/22/18 09:41 Dose: 100 mg Ferrous Sulfate (Iron) 325 mg PO DAILY [facility] Stop: 10/20/18 08:59 Last Admin: 08/22/18 09:41 Dose: 325 mg Heparin Sodium (Porcine) (Heparin) 5,000 units SUBQ Q12H [facility] Stop: 10/20/18 20:59 Last Admin: 08/22/18 22:09 Dose: 5,000 units Dextrose/Sodium Chloride (D5-0.9%Ns) 1,000 mls @ 80 mls/hr IV .[id number] [facility] Stop: 10/20/18 21:14 Last Admin: 08/22/18 22:35 Dose: 80 mls/hr Lactobacillus Rhamnosus (Culturelle 15b) 1 each PO DAILY [facility] Stop: 10/20/18 10:59 Last Admin: 08/22/18 09:41 Dose: 1 each Magnesium Hydroxide (Milk Of Magnesia) 30 ml PO DAILY PRN PRN Reason: Constipation Stop: 10/20/18 08:04 Mirtazapine (Remeron) 30 mg PO HS [facility] Stop: 10/20/18 20:59 Miscellaneous (Vte Chemical Prophylaxis Screen/ Admission) 1 ea [facility] PRN PRN PRN Reason: PROTOCOL Stop: 10/20/18 12:58 Multivitamins/Vitamin C (Theragran) 1 tab PO DAILY [facility] Stop: 10/20/18 10:59 Last Admin: 08/22/18 09:42 Dose: 1 tab Nitroglycerin (Nitrostat) 0.4 mg SL Q5MIN PRN PRN Reason: Chest Pain Stop: 10/20/18 08:04 Quetiapine Fumarate (Seroquel) 50 mg PO [facility]; Protocol Stop: 10/20/18 20:59 General: weak, congested HEENT: NC/AT, PERRLA, EOMI, anicteric sclerae, throat clear Neck: Supple, No JVD, No thyromegaly Lungs: wheezing Cardiovascular: RRR Abdomen: soft, non-tender, non-distended Extremities: clear Neurological: no change Internal Medicine Assmt/Plan - Assessment Assessment: ALOC: on and off; observe. Abd Pain: better. COPD exacerbation: RT protocol; considering Solumedrol if needed. Failure to thrive: work up in progress. Elevated Ammonia level; Improving. Dehydration: IVF. Seizure: controlled. Nutritional Asmnt/Malnutr-PDOC - Dietary Evaluation Malnutrition Findings (Please click <Entered> for more info): Nutritional Asmnt/Malnutrition Start: 08/21/18 12: 46 Text: Status: Complete Freq: Protocol: Document 08/21/18 12:46 ANGIE (Rec: 08/21/18 13:16 ANGIE [email or web address]) Nutritional Asmnt/Malnutrition Patient General Information Nutritional Screening High Risk Consult Diagnosis ALOC, generalized weakness, failure to thrive Pertinent Medical Hx/Surgical Hx CHF, PUD/GERD, seizures, s/p CVA, COPD, AFIB, psychosis, abolishes cephalopathy, angina , cachexia, anemia, hypothyroidism, respiratory failure, dementia Subjective Information Received diet consult for low appetite. Per ER MD note, pt was anorexic recently and lost 10# within 2 months. Spoke w/ RN who states pt had good appetite at breakfast and finished >75%. Spoke and assisted pt during lunch, but unable to understand pt d/t unclear speech. Pt appears eager to eat and asked to be left alone to eat after assistance w/ lunch was completed. Current Diet Order/ Nutrition Support mech soft ground, low Na Pertinent Medications Vit C, lipitor, oscal w/ Vit D , Vit D3, colace, iron, culturelle, remeron, theragran , seroquel Pertinent Labs 08/20: Cl 109, BUN 28 Nutritional Hx/Data Height 1.65 m Height (Calculated Centimeters) 165.1 Current Weight (lbs) 41.368 kg Weight (Calculated Kilograms) 41.4 Weight (Calculated Grams) 20017.6 [place] Body Weight 136 lb Body Mass Index (BMI) 15.1 Recent Weight Change Yes Weight Status Underweight GI Symptoms GI Symptoms None Last BM none noted Difficult in: None Food Allergies No Usual diet at home regular diet per pt Skin Integrity/Comment: scab on right foot, intact, garcía 16 Current %PO Good (75-100%) Estimated Nutritional Goals BEE in Kcals: Using Current wt Calories/Kcals/Kg 35-40 Kcals Calculated 3099-7443 Protein: Using Current wt Protein g/k.2-1.4 Protein Calculated 50-58 g Fluid: ml 9937-6298 (1 ml/kcal) Nutritional Problem 2. Problem Problem Involuntary wt loss Etiology possible low appetite Signs/Symptoms: 10# wt loss over 2 months before admission per MD note 1. Problem Problem Underweight Etiology possible poor oral intake Signs/Symptoms: BMI 15.2 Malnutrition Related to Morbid Obesity Malnutrition related to morbid obesity No Intervention/Recommendation Comments 1. Continue with [facility] soft ground, low Na diet as ordered and assist with meals as needed 2. Pt appears to have good appetite and meals will provide 100% of nutritional needs 3. Monitor PO intake, wt, labs , and skin integrity 4. F/U as moderate risk in 3-5 days, 08/24-; PO check Expected Outcomes/Goals Expected Outcomes/Goals 1. PO intake to meet at least 75% of all meals 2. Wt gain or stability, skin to remain intact, and nutrition related labs to approach normal limits Reviewed by Margaret Quiñonez RD
[2018-08-23] MEDS: Multivitamin Tab PO SCH (08:57)
[2018-08-23] MEDS: Calcium Carb/Vit D 500 mg/200 U Tab PO SCH (08:57)
[2018-08-23] MEDS: Lactobacillus Rhamnosus GG 15 Billion CFU CAP.SPRINK PO SCH (08:57)
[2018-08-23] MEDS: Ferrous Sulfate 325 MG TAB PO SCH (08:58)
[2018-08-23] MEDS: D5-0.9%NS 1,000 ML IV SCH (14:00)
--- NOTE | 2018-08-23 22:00 | Internal Medicine Prog Note ---
Internal Medicine Subjective - Subjective Service Date: 08/23/18 Patient seen and examined:: with staff Patient is:: awake, verbal, interactive, in bed Patient Complaints of:: congestion Per staff patient has:: no adverse event Internal Medicine Objective - Results Result Diagrams: 08/20/18 23:30 08/20/18 23:30 Recent Labs: Laboratory Last Values WBC 5.6 Th/cmm (4.8-10.8) 08/20/18 23:30 RBC 4.19 Mil/cmm (3.80-5.80) 08/20/18 23:30 Hgb 13.1 gm/dL (12-16) 08/20/18 23:30 Hct 38.9 % (41.0-60) L 08/20/18 23: MCV 93.0 fl (80-99) 08/20/18 23:30 MCH 31.3 pg (27.0-31.0) H 08/20/18 23:30 MCHC Differential 33.7 pg (28.0-36.0) 08/20/18 23: RDW 13.7 % (11.5-20.0) 08/20/18 23:30 Plt Count 212 Th/cmm (150-400) 08/20/18 23:30 MPV 7.8 fl 08/20/18 23:30 Neutrophils % 52.9 % (40.0-80.0) 08/20/18 23:30 Lymphocytes % 36.7 % (20.0-50.0) 08/20/18 23: Monocytes % 6.8 % (2.0-10.0) 08/20/18 23:30 Eosinophils % 3.3 % (0.0-5.0) 08/20/18 23:30 Basophils % 0.3 % (0.0-2.0) 08/20/18 23:30 Sodium 140 mEq/L (136-145) 08/20/18 23:30 Potassium 3.9 mEq/L (3.5-5.1) 08/20/18 23:30 Chloride 109 mEq/L (98-107) H 08/20/18 23:30 Carbon Dioxide 26.8 mEq/L (21.0-31.0) 08/20/18 23:30 Anion Gap 8.1 (7.0-16.0) 08/20/18 23:30 BUN 28 mg/dL (7-25) H 08/20/18 23:30 Creatinine 0.9 mg/dL (0.7-1.3) 08/20/18 23:30 Est GFR ( Amer) TNP 08/20/18 23:30 Est GFR (Non-Af Amer) TNP 08/20/18 23:30 BUN/Creatinine Ratio 31.1 08/20/18 23:30 Glucose 79 mg/dL (70-105) 08/20/18 23:30 Calcium 8.8 mg/dL (8.6-10.3) 08/20/18 23:30 Ammonia 40 umol/L (16-53) 08/22/18 06:50 B-Natriuretic Peptide 73.5 pg/mL (5.0-100.0) 08/21/18 21:11 Lipase 20 U/L (11-82) 08/20/18 23:30 TSH 1.30 uIU/ml (0.34-5.60) 08/21/18 09:06 Urine Source RANDOM 08/21/18 06:18 Urine Color YELLOW 08/21/18 06:18 Urine Clarity CLEAR (CLEAR) 08/21/18 06:18 Urine pH 6.5 (4.6 - 8.0) 08/21/18 06:18 Ur Specific [place] 1.010 (1.005-1.030) 08/21/18 06:18 Urine Protein NEGATIVE mg/dL (NEGATIVE) 08/21/18 06:18 Urine Glucose (UA) NEGATIVE mg/dL (NEGATIVE) 08/21/18 06:18 Urine Ketones NEGATIVE mg/dL (NEGATIVE) 08/21/18 06:18 Urine Blood NEGATIVE (NEGATIVE) 08/21/18 06:18 Urine Nitrate NEGATIVE (NEGATIVE) 08/21/18 06:18 Urine Bilirubin NEGATIVE (NEGATIVE) 08/21/18 06:18 Urine Urobilinogen 0.2 E.U./dL (0.2 - 1.0) 08/21/18 06:18 Ur Leukocyte Esterase NEGATIVE (NEGATIVE) 08/21/18 06:18 - Physical Exam Vitals and I&O: Vital Signs Temp 98.4 F 08/23/18 20:00 Pulse 77 08/23/18 20:00 Resp 18 08/23/18 20:00 BP 124/57 08/23/18 20:00 Pulse Ox 96 08/23/18 20:00 Intake & Output 08/23/18 08/23/18 08/24/18 06:59 18:59 06:59 Intake Total 50 2800 Balance 50 2800 Weight (lbs) 46.72 kg 46.72 kg Intake: Intake, IV Amount 1000 D5-0.9%Ns 1,000 ml @ 80 1000 mls/hr IV .[id number] [facility] Rx #:[id number] Oral 50 1800 Tube Feeding 0 Other: # Voids 3 3 # Bowel Movements 0 0 Weight Source Bedscale Bedscale Active Medications: Current Medications Acetaminophen (Tylenol) 650 mg PO Q6HR PRN PRN Reason: Pain or Fever >101 Stop: 10/20/18 08:01 Albuterol/Ipratropium (Duoneb Neb) 3 ml HHN Q4H PRN PRN Reason: Wheezing Stop: 10/20/18 08:24 Ascorbic Acid (Vitamin C) 500 mg PO DAILY [facility] Stop: 10/20/18 08:59 Last Admin: 08/23/18 08:58 Dose: 500 mg Atorvastatin Calcium (Lipitor) 10 mg PO HS [facility]; Protocol Stop: 10/20/18 20:59 Last Admin: 08/22/18 22:09 Dose: 10 mg Bisacodyl (Dulcolax 10 Mg Supp) 10 mg RC DAILY PRN PRN Reason: Constipation Stop: 10/20/18 08:01 Calcium/Vitamin D (Oscal W/Vitamin D) 1 tab PO DAILY [facility] Stop: 10/20/18 08:59 Last Admin: 08/23/18 08:57 Dose: 1 tab Cholecalciferol (Vitamin D3) 1,000 iu PO DAILY [facility] Stop: 10/20/18 10:59 Last Admin: 08/23/18 08:57 Dose: 1,000 iu Divalproex Sodium (Depakote Er) 250 mg PO DAILY [facility]; Protocol Stop: 10/20/18 08:59 Last Admin: 08/23/18 10:03 Dose: 250 mg Divalproex Sodium (Depakote Er) 500 mg PO HS [facility]; Protocol Stop: 10/20/18 20:59 Docusate Sodium (Colace) 100 mg PO DAILY [facility] Stop: 10/20/18 08:59 Last Admin: 08/23/18 08:58 Dose: 100 mg Ferrous Sulfate (Iron) 325 mg PO DAILY [facility] Stop: 10/20/18 08:59 Last Admin: 08/23/18 08:58 Dose: 325 mg Heparin Sodium (Porcine) (Heparin) 5,000 units SUBQ Q12H [facility] Stop: 10/20/18 20:59 Last Admin: 08/23/18 08:58 Dose: Not Given Dextrose/Sodium Chloride (D5-0.9%Ns) 1,000 mls @ 80 mls/hr IV .[id number] [facility] Stop: 10/20/18 21:14 Last Admin: 08/23/18 14:00 Dose: 80 mls/hr Lactobacillus Rhamnosus (Culturelle 15b) 1 each PO DAILY [facility] Stop: 10/20/18 10:59 Last Admin: 08/23/18 08:57 Dose: 1 each Magnesium Hydroxide (Milk Of Magnesia) 30 ml PO DAILY PRN PRN Reason: Constipation Stop: 10/20/18 08:04 Methylprednisolone Sodium Succinate (Solu-Medrol) 60 mg IVP Q8HR [facility] Stop: 10/23/18 04:59 Mirtazapine (Remeron) 30 mg PO HS [facility] Stop: 10/20/18 20:59 Miscellaneous (Vte Chemical Prophylaxis Screen/ Admission) 1 ea [facility] PRN PRN PRN Reason: PROTOCOL Stop: 10/20/18 12:58 Multivitamins/Vitamin C (Theragran) 1 tab PO DAILY [facility] Stop: 10/20/18 10:59 Last Admin: 08/23/18 08:57 Dose: 1 tab Nitroglycerin (Nitrostat) 0.4 mg SL Q5MIN PRN PRN Reason: Chest Pain Stop: 10/20/18 08:04 Quetiapine Fumarate (Seroquel) 50 mg PO HS [facility]; Protocol Stop: 10/20/18 20:59 General: weak, congested HEENT: NC/AT, PERRLA, EOMI, anicteric sclerae, throat clear Neck: Supple, No JVD, No thyromegaly Lungs: wheezing Cardiovascular: RRR Abdomen: soft, non-tender, non-distended Extremities: clear Neurological: no change Internal Medicine Assmt/Plan - Assessment Assessment: COPD exacerbation: RT protocol; Solumedrol IVP q8h. ALOC: on and off; observe. Abd Pain: better. Failure to thrive: work up in progress. Elevated Ammonia level; Improving. Dehydration: IVF. Seizure: controlled. Nutritional Asmnt/Malnutr-PDOC - Dietary Evaluation Malnutrition Findings (Please click <Entered> for more info): Nutritional Asmnt/Malnutrition Start: 08/21/18 12: 46 Text: Status: Complete Freq: Protocol: Document 08/21/18 12:46 ANGIE (Rec: 08/21/18 13:16 [email or web address]) Nutritional Asmnt/Malnutrition Patient General Information Nutritional Screening High Risk Consult Diagnosis ALOC, generalized weakness, failure to thrive Pertinent Medical Hx/Surgical Hx CHF, PUD/GERD, seizures, s/p CVA, COPD, AFIB, psychosis, abolishes cephalopathy, angina , cachexia, anemia, hypothyroidism, respiratory failure, dementia Subjective Information Received diet consult for low appetite. Per ER MD note, pt was anorexic recently and lost 10# within 2 months. Spoke w/ RN who states pt had good appetite at breakfast and finished >75%. Spoke and assisted pt during lunch, but unable to understand pt d/t unclear speech. Pt appears eager to eat and asked to be left alone to eat after assistance w/ lunch was completed. Current Diet Order/ Nutrition Support mech soft ground, low Na Pertinent Medications Vit C, lipitor, oscal w/ Vit D , Vit D3, colace, iron, culturelle, remeron, theragran , seroquel Pertinent Labs 08/20: Cl 109, BUN 28 Nutritional Hx/Data Height 1.65 m Height (Calculated Centimeters) 165.1 Current Weight (lbs) 41.368 kg Weight (Calculated Kilograms) 41.4 Weight (Calculated Grams) 24456.6 [place] Body Weight 136 lb Body Mass Index (BMI) 15.1 Recent Weight Change Yes Weight Status Underweight GI Symptoms GI Symptoms None Last BM none noted Difficult in: None Food Allergies No Usual diet at home regular diet per pt Skin Integrity/Comment: scab on right foot, intact, garcía 16 Current %PO Good (75-100%) Estimated Nutritional Goals BEE in Kcals: Using Current wt Calories/Kcals/Kg 35-40 Kcals Calculated 7074-4314 Protein: Using Current wt Protein g/k.2-1.4 Protein Calculated 50-58 g Fluid: ml 3568-0885 (1 ml/kcal) Nutritional Problem 2. Problem Problem Involuntary wt loss Etiology possible low appetite Signs/Symptoms: 10# wt loss over 2 months before admission per MD note 1. Problem Problem Underweight Etiology possible poor oral intake Signs/Symptoms: BMI 15.2 Malnutrition Related to Morbid Obesity Malnutrition related to morbid obesity No Intervention/Recommendation Comments 1. Continue with [facility] soft ground, low Na diet as ordered and assist with meals as needed 2. Pt appears to have good appetite and meals will provide 100% of nutritional needs 3. Monitor PO intake, wt, labs , and skin integrity 4. F/U as moderate risk in 3-5 days, 08/24-; PO check Expected Outcomes/Goals Expected Outcomes/Goals 1. PO intake to meet at least 75% of all meals 2. Wt gain or stability, skin to remain intact, and nutrition related labs to approach normal limits Reviewed by Margaret Quiñonez RD
[2018-08-24 04:41] LABS: % BASOPHILS 0.5 % (0.0-2.0); % EOSINOPHILS 4.5 % (0.0-5.0); % LYMPHOCYTES 34.8 % (20.0-50.0); % NEUTROPHILS 53.2 % (40.0-80.0); EOSINOPHILE ABSOLUTE 0.2 Th/cmm (0.1-0.4); HEMATOCRIT 37.3 % (41.0-60); HEMOGLOBIN 12.3 gm/dL (12-16); LYMPHOCYTE ABSOLUTE 1.5 Th/cmm (1.5-3.0); MEAN CELL VOLUME 92.1 fl (80-99); MEAN CORPUSCULAR HEMOGLOBIN 30.5 pg (27.0-31.0); MEAN CORPUSCULAR HGB CONC 33.1 pg (28.0-36.0); MEAN PLATELET VOLUME 8.3 fl; MONOCYTE ABSOLUTE 0.3 Th/cmm (0.3-1.0); NEUTROPHILE ABSOLUTE 2.2 Th/cmm (1.8-8.0); PLATELET COUNT 179 Th/cmm (150-400); RED BLOOD COUNT 4.05 Mil/cmm (3.80-5.80); RED CELL DISTRIBUTION WIDTH 13.8 % (11.5-20.0); WHITE BLOOD COUNT 4.2 Th/cmm (4.8-10.8)
[2018-08-24 05:17] LABS: ANION GAP 9.3 (7.0-16.0); BUN - UREA NITROGEN 20 mg/dL (7-25); CALCIUM SERUM 8.3 mg/dL (8.6-10.3); CARBON DIOXIDE 24.9 mEq/L (21.0-31.0); CHLORIDE 111 mEq/L (98-107); CREATININE - SERUM 0.8 mg/dL (0.7-1.3); GLUCOSE 98 mg/dL (70-105); POTASSIUM SERUM 4.2 mEq/L (3.5-5.1); SODIUM SERUM 141 mEq/L (136-145)
[2018-08-24] MEDS: Atorvastatin Calcium 10 MG TAB PO SCH ×2 (05:55→22:20)
[2018-08-24] MEDS: D5-0.9%NS 1,000 ML IV SCH (06:05)
[2018-08-24] MEDS: Multivitamin Tab PO SCH (09:00)
[2018-08-24] MEDS: Pantoprazole 40 mg EC Tab PO SCH (09:00)
[2018-08-24] MEDS: Calcium Carb/Vit D 500 mg/200 U Tab PO SCH (09:00)
[2018-08-24] MEDS: Ferrous Sulfate 325 MG TAB PO SCH (09:00)
[2018-08-24] MEDS: Lactobacillus Rhamnosus GG 15 Billion CFU CAP.SPRINK PO SCH (09:00)
--- NOTE | 2018-08-24 21:01 | Internal Medicine Prog Note ---
Internal Medicine Subjective - Subjective Service Date: 08/24/18 Patient seen and examined:: without staff Patient is:: awake, verbal, interactive, in bed Patient Complaints of:: congestion Per staff patient has:: no adverse event Internal Medicine Objective - Results Result Diagrams: 08/24/18 04:30 08/24/18 04:30 Recent Labs: Laboratory Last Values WBC 4.2 Th/cmm (4.8-10.8) L 08/24/18 04:30 RBC 4.05 Mil/cmm (3.80-5.80) 08/24/18 04:30 Hgb 12.3 gm/dL (12-16) 08/24/18 04:30 Hct 37.3 % (41.0-60) L 08/24/18 04:30 MCV 92.1 fl (80-99) 08/24/18 04:30 MCH 30.5 pg (27.0-31.0) 08/24/18 04:30 MCHC Differential 33.1 pg (28.0-36.0) 08/24/18 04:30 RDW 13.8 % (11.5-20.0) 08/24/18 04:30 Plt Count 179 Th/cmm (150-400) 08/24/18 04:30 MPV 8.3 fl 08/24/18 04:30 Neutrophils % 53.2 % (40.0-80.0) 08/24/18 04:30 Lymphocytes % 34.8 % (20.0-50.0) 08/24/18 04:30 Monocytes % 7.0 % (2.0-10.0) 08/24/18 04:30 Eosinophils % 4.5 % (0.0-5.0) 08/24/18 04:30 Basophils % 0.5 % (0.0-2.0) 08/24/18 04:30 Sodium 141 mEq/L (136-145) 08/24/18 04:30 Potassium 4.2 mEq/L (3.5-5.1) 08/24/18 04:30 Chloride 111 mEq/L (98-107) H 08/24/18 04:30 Carbon Dioxide 24.9 mEq/L (21.0-31.0) 08/24/18 04:30 Anion Gap 9.3 (7.0-16.0) 08/24/18 04:30 BUN 20 mg/dL (7-25) 08/24/18 04:30 Creatinine 0.8 mg/dL (0.7-1.3) 08/24/18 04:30 Est GFR ( Amer) TNP 08/24/18 04:30 Est GFR (Non-Af Amer) TNP 08/24/18 04:30 BUN/Creatinine Ratio 25.0 08/24/18 04:30 Glucose 98 mg/dL (70-105) 08/24/18 04:30 Calcium 8.3 mg/dL (8.6-10.3) L 08/24/18 04:30 Ammonia 40 umol/L (16-53) 08/22/18 06:50 B-Natriuretic Peptide 73.5 pg/mL (5.0-100.0) 08/21/18 21:11 Lipase 20 U/L (11-82) 08/20/18 23:30 TSH 1.30 uIU/ml (0.34-5.60) 08/21/18 09:06 Urine Source RANDOM 08/21/18 06:18 Urine Color YELLOW 08/21/18 06:18 Urine Clarity CLEAR (CLEAR) 08/21/18 06:18 Urine pH 6.5 (4.6 - 8.0) 08/21/18 06:18 Ur Specific [place] 1.010 (1.005-1.030) 08/21/18 06:18 Urine Protein NEGATIVE mg/dL (NEGATIVE) 08/21/18 06:18 Urine Glucose (UA) NEGATIVE mg/dL (NEGATIVE) 08/21/18 06:18 Urine Ketones NEGATIVE mg/dL (NEGATIVE) 08/21/18 06:18 Urine Blood NEGATIVE (NEGATIVE) 08/21/18 06:18 Urine Nitrate NEGATIVE (NEGATIVE) 08/21/18 06:18 Urine Bilirubin NEGATIVE (NEGATIVE) 08/21/18 06:18 Urine Urobilinogen 0.2 E.U./dL (0.2 - 1.0) 08/21/18 06:18 Ur Leukocyte Esterase NEGATIVE (NEGATIVE) 08/21/18 06:18 - Physical Exam Vitals and I&O: Vital Signs Temp 98.2 F 08/24/18 16:04 Pulse 57 08/24/18 16:04 Resp 17 08/24/18 16:04 BP 110/74 08/24/18 16:04 Pulse Ox 97 08/24/18 16:04 Intake & Output 08/24/18 08/24/18 08/25/18 06:59 18:59 06:59 Intake Total 1000 650 Balance 1000 650 Weight (lbs) 46.72 kg Intake: Intake, IV Amount 1000 D5-0.9%Ns 1,000 ml @ 80 1000 mls/hr IV .[id number] [facility] Rx #:[id number] Oral 650 Other: # Voids 3 # Bowel Movements 1 Weight Source Bedscale Active Medications: Current Medications Acetaminophen (Tylenol) 650 mg PO Q6HR PRN PRN Reason: Pain or Fever >101 Stop: 10/20/18 08:01 Albuterol/Ipratropium (Duoneb Neb) 3 ml HHN Q4H PRN PRN Reason: Wheezing Stop: 10/20/18 08:24 Ascorbic Acid (Vitamin C) 500 mg PO DAILY [facility] Stop: 10/20/18 08:59 Last Admin: 08/24/18 09:00 Dose: 500 mg Atorvastatin Calcium (Lipitor) 10 mg PO HS [facility]; Protocol Stop: 10/20/18 20:59 Last Admin: 08/24/18 05:55 Dose: 10 mg Bisacodyl (Dulcolax 10 Mg Supp) 10 mg RC DAILY PRN PRN Reason: Constipation Stop: 10/20/18 08:01 Calcium/Vitamin D (Oscal W/Vitamin D) 1 tab PO DAILY [facility] Stop: 10/20/18 08:59 Last Admin: 08/24/18 09:00 Dose: 1 tab Cholecalciferol (Vitamin D3) 1,000 iu PO DAILY [facility] Stop: 10/20/18 10:59 Last Admin: 08/24/18 09:00 Dose: 1,000 iu Divalproex Sodium (Depakote Er) 250 mg PO DAILY [facility]; Protocol Stop: 10/20/18 08:59 Last Admin: 08/24/18 08:59 Dose: 250 mg Divalproex Sodium (Depakote Er) 500 mg PO HS [facility]; Protocol Stop: 10/20/18 20:59 Last Admin: 08/23/18 21:35 Dose: 500 mg Docusate Sodium (Colace) 100 mg PO DAILY [facility] Stop: 10/20/18 08:59 Last Admin: 08/24/18 08:59 Dose: 100 mg Ferrous Sulfate (Iron) 325 mg PO DAILY [facility] Stop: 10/20/18 08:59 Last Admin: 08/24/18 09:00 Dose: 325 mg Heparin Sodium (Porcine) (Heparin) 5,000 units SUBQ Q12H [facility] Stop: 10/20/18 20:59 Last Admin: 08/24/18 09:00 Dose: 5,000 units Dextrose/Sodium Chloride (D5-0.9%Ns) 1,000 mls @ 80 mls/hr IV .[id number] [facility] Stop: 10/20/18 21:14 Last Admin: 08/24/18 06:05 Dose: 80 mls/hr Lactobacillus Rhamnosus (Culturelle 15b) 1 each PO DAILY [facility] Stop: 10/20/18 10:59 Last Admin: 08/24/18 09:00 Dose: 1 each Magnesium Hydroxide (Milk Of Magnesia) 30 ml PO DAILY PRN PRN Reason: Constipation Stop: 10/20/18 08:04 Methylprednisolone Sodium Succinate (Solu-Medrol) 60 mg IVP Q8HR [facility] Stop: 10/23/18 04:59 Last Admin: 08/24/18 14:32 Dose: 60 mg Mirtazapine (Remeron) 30 mg PO HS [facility] Stop: 10/20/18 20:59 Last Admin: 08/23/18 22:08 Dose: 30 mg Miscellaneous (Vte Chemical Prophylaxis Screen/ Admission) 1 ea MC PRN PRN PRN Reason: PROTOCOL Stop: 10/20/18 12:58 Multivitamins/Vitamin C (Theragran) 1 tab PO DAILY [facility] Stop: 10/20/18 10:59 Last Admin: 08/24/18 09:00 Dose: 1 tab Nitroglycerin (Nitrostat) 0.4 mg SL Q5MIN PRN PRN Reason: Chest Pain Stop: 10/20/18 08:04 Pantoprazole Sodium (Protonix) 40 mg PO DAILY [facility] Stop: 10/23/18 08:59 Last Admin: 08/24/18 09:00 Dose: 40 mg Quetiapine Fumarate (Seroquel) 50 mg PO HS [facility]; Protocol Stop: 10/20/18 20:59 Last Admin: 08/23/18 21:35 Dose: 50 mg General: weak, congested HEENT: NC/AT, PERRLA, EOMI, anicteric sclerae, throat clear Neck: Supple, No JVD, No thyromegaly Lungs: wheezing Cardiovascular: RRR Abdomen: soft, non-tender, non-distended Extremities: clear Neurological: no change Internal Medicine Assmt/Plan - Assessment Assessment: Leukopenia? repeat cbc in am. COPD exacerbation: RT protocol; Solumedrol IVP q8h. ALOC: on and off; observe. Abd Pain: better. Failure to thrive: work up in progress. Elevated Ammonia level; Improving. Dehydration: IVF. Seizure: controlled. Nutritional Asmnt/Malnutr-PDOC - Dietary Evaluation Malnutrition Findings (Please click <Entered> for more info): Nutritional Asmnt/Malnutrition Start: 08/21/18 12: 46 Text: Status: Complete Freq: Protocol: Document 08/21/18 12:46 ANGIE (Rec: 08/21/18 13:16 [email or web address]) Nutritional Asmnt/Malnutrition Patient General Information Nutritional Screening High Risk Consult Diagnosis ALOC, generalized weakness, failure to thrive Pertinent Medical Hx/Surgical Hx CHF, PUD/GERD, seizures, s/p CVA, COPD, AFIB, psychosis, abolishes cephalopathy, angina , cachexia, anemia, hypothyroidism, respiratory failure, dementia Subjective Information Received diet consult for low appetite. Per ER MD note, pt was anorexic recently and lost 10# within 2 months. Spoke w/ RN who states pt had good appetite at breakfast and finished >75%. Spoke and assisted pt during lunch, but unable to understand pt d/t unclear speech. Pt appears eager to eat and asked to be left alone to eat after assistance w/ lunch was completed. Current Diet Order/ Nutrition Support [facility] soft ground, low Na Pertinent Medications Vit C, lipitor, oscal w/ Vit D , Vit D3, colace, iron, culturelle, remeron, theragran , seroquel Pertinent Labs 08/20: Cl 109, BUN 28 Nutritional Hx/Data Height 1.65 m Height (Calculated Centimeters) 165.1 Current Weight (lbs) 41.368 kg Weight (Calculated Kilograms) 41.4 Weight (Calculated Grams) 58046.6 [place] Body Weight 136 lb Body Mass Index (BMI) 15.1 Recent Weight Change Yes Weight Status Underweight GI Symptoms GI Symptoms None Last BM none noted Difficult in: None Food Allergies No Usual diet at home regular diet per pt Skin Integrity/Comment: scab on right foot, intact, garcía 16 Current %PO Good (75-100%) Estimated Nutritional Goals BEE in Kcals: Using Current wt Calories/Kcals/Kg 35-40 Kcals Calculated 4723-4849 Protein: Using Current wt Protein g/k.2-1.4 Protein Calculated 50-58 g Fluid: ml 4181-8348 (1 ml/kcal) Nutritional Problem 2. Problem Problem Involuntary wt loss Etiology possible low appetite Signs/Symptoms: 10# wt loss over 2 months before admission per MD note 1. Problem Problem Underweight Etiology possible poor oral intake Signs/Symptoms: BMI 15.2 Malnutrition Related to Morbid Obesity Malnutrition related to morbid obesity No Intervention/Recommendation Comments 1. Continue with [facility] soft ground, low Na diet as ordered and assist with meals as needed 2. Pt appears to have good appetite and meals will provide 100% of nutritional needs 3. Monitor PO intake, wt, labs , and skin integrity 4. F/U as moderate risk in 3-5 days, 08/24-; PO check Expected Outcomes/Goals Expected Outcomes/Goals 1. PO intake to meet at least 75% of all meals 2. Wt gain or stability, skin to remain intact, and nutrition related labs to approach normal limits Reviewed by Margaret Quiñonez RD
[2018-08-25 06:54] LABS: % EOSINOPHILS 0.2 % (0.0-5.0); % LYMPHOCYTES 12.7 % (20.0-50.0); % MONOCYTES 4.1 % (2.0-10.0); BASOPHILE ABSOLUTE 0.5 Th/cumm (0-0.2); HEMATOCRIT 42.2 % (41.0-60); HEMOGLOBIN 14.3 gm/dL (12-16); LYMPHOCYTE ABSOLUTE 1.7 Th/cmm (1.5-3.0); MEAN CORPUSCULAR HEMOGLOBIN 30.8 pg (27.0-31.0); MEAN CORPUSCULAR HGB CONC 33.9 pg (28.0-36.0); MEAN PLATELET VOLUME 9.9 fl; MONOCYTE ABSOLUTE 0.5 Th/cmm (0.3-1.0); NEUTROPHILE ABSOLUTE 10.3 Th/cmm (1.8-8.0); PLATELET COUNT 220 Th/cmm (150-400); RED BLOOD COUNT 4.63 Mil/cmm (3.80-5.80); RED CELL DISTRIBUTION WIDTH 13.8 % (11.5-20.0)
[2018-08-25] MEDS: Calcium Carb/Vit D 500 mg/200 U Tab PO SCH (08:35)
[2018-08-25] MEDS: Lactobacillus Rhamnosus GG 15 Billion CFU CAP.SPRINK PO SCH (08:35)
[2018-08-25] MEDS: Ferrous Sulfate 325 MG TAB PO SCH (08:35)
[2018-08-25] MEDS: Pantoprazole 40 mg EC Tab PO SCH (08:35)
[2018-08-25] MEDS: Multivitamin Tab PO SCH (08:36)
--- NOTE | 2018-08-30 22:37 | Discharge Summary ---
DATE OF DISCHARGE: 08/25/2018 FINAL DIAGNOSES: 1. Altered level of consciousness, improved. 2. Weakness, stabilized. 3. Elevated ammonia level, improved. 4. Constipation, improved. 5. Abdominal pain, resolved. 6. Chronic obstructive pulmonary disease, stabilized. HOSPITAL COURSE: The patient is a 77-year-old male admitted due to altered level of consciousness, severe weakness and abdominal pain, possibly from constipation. The patient also had elevated ammonia level on admission, which improved and the patient also received treatment for the COPD exacerbation. His condition stabilized, he was accepted back to assisted. DISCHARGE CONDITION: Stable. DISPOSITION: [facility]. DISCHARGE MEDICATIONS: Continue medication from here. DIET: Cardiac soft diet. ACTIVITY: Up as tolerated. FOLLOWUP: In week. JOB# [id number]
== END 2018-08-25 14:15 | DRG 441 ==
LOC: ER 22:28 → TELE 08-21 01:15
PROVIDERS: ADMIT Internal Medicine; ATTEND Internal Medicine
DX: K72.90 Hepatic failure, unspecified without coma (principal); G93.41 Metabolic encephalopathy; J44.1 Chronic obstructive pulmonary disease with (acute) exacerbation; Z68.1 Body mass index [BMI] 19.9 or less, adult; G40.909 Epilepsy, unspecified, not intractable, without status epilepticus; R62.7 Adult failure to thrive; R63.0 Anorexia; I50.9 Heart failure, unspecified; K21.9 Gastro-esophageal reflux disease without esophagitis; I48.91 Unspecified atrial fibrillation; E03.9 Hypothyroidism, unspecified; F17.210 Nicotine dependence, cigarettes, uncomplicated; F03.90 Unspecified dementia, unspecified severity, without behavioral disturbance, psychotic disturbance, mood disturbance, and anxiety; E86.0 Dehydration; Z86.73 Personal history of transient ischemic attack (TIA), and cerebral infarction without residual deficits
CPT/HCPCS: 36415-UA; 71045-TC; 80048-TC; 81003-TC; 82140-TC; 83690-TC; 83880-TC; 84443-TC; 85025-TC; 87086-90; 94760; J1644; J2930; J7042; Z7610

== ENCOUNTER 2018-11-17 23:56 | Emergency (ER) | payer MEDICAID, MEDICARE ==
--- NOTE | 2018-11-18 01:06 | ED Physician Chart ---
ED Chief Complaint/HPI - Patient Information Date Seen:: 11/18/18 Time Seen:: 01:05 Chief Complaint:: Cough History of Present Illness:: 78 yo male was brought by ambulance from [facility] to ER for evaluation of productive and congestion for 2 days. Pt also had generalized weakness and loss of appetite. Allergies:: Allergies Allergy/AdvReac Type Severity Reaction Status Date / Time No Known Allergies Allergy Verified 04/07/18 23:38 Vitals:: Vital Signs - 8 hr 11/18/18 00:00 Temp 97.3 F HR 67 RR 18 BP 100/55 O2 Sat % 95 <Sarahi Tellez - Last Filed: 11/18/18 08:10> - Patient Information Allergies:: Allergies Allergy/AdvReac Type Severity Reaction Status Date / Time No Known Allergies Allergy Verified 04/07/18 23:38 Vitals:: Vital Signs - 8 hr 11/18/18 00:00 Temp 97.3 F HR 67 RR 18 BP 100/55 O2 Sat % 95 <Chaparro Butts - Last Filed: 11/18/18 08:18> ED Review of Systems - Review of Systems General/Constitutional: No fever, No chills, Weakness Skin: No rash Head: No headache Eyes: No pain ENT: No nasal drainage Neck: No neck pain Pulmonary: Cough, Sputum GI: No nausea, No vomiting Musculoskeletal: No bone or joint pain Neurological: No focal symptoms <Sarahi Tellez - Last Filed: 11/18/18 08:10> ED Past Medical History - Past Medical History Past Medical History: Asthma/COPD, CVA/TIA, Thyroid disorder (Hypothyroidism), Dementia, Other (ANEMIA, RESPIRATORY FAILURE, PNA ) Social History: Non Smoker, No Alcohol, No Drug Use <Sarahi Tellez - Last Filed: 11/18/18 08:10> Family Medical History - Family Member Mother History Unknown: Yes Ethnicity: Living Status: Unknown Hx Family Cancer: (UNKNOWN) Hx Family Coronary Artery Disease: (UNKNOWN) Hx Family Congestive Heart Failure: (UNKNOWN) Hx Family Hypertension: (UNKNOWN) Hx Family Stroke: (UNKNOWN) Hx Family Diabetes: (UNKNOWN) Hx Family Seizures: (UNKNOWN) Hx Family Dementia: (UNKNOWN) Hx Family AIDS: (UNKNOWN) Hx Family COPD: (UNKNOWN) Hx Family Hepatitis: (UNKNOWN) Hx Family Psychiatric Problems: (UNKNOWN) Hx Family Tuberculosis: (UNKNOWN) <Neil Tellez Filed: 11/18/18 08:10> ED Physical Exam - Physical Examination General/Constitutional: Awake Other Gen/Cons comments:: Confused Head: Atraumatic Eyes: PERRL Skin: No ecchymosis ENMT: Nasal exam nl Neck: No nuchal rigidity Other Respiratory comments:: Rhonchi Cardio Vascular: RRR, No murmur, gallop, rubs, NL S1 S2 GI: No tenderness/rebounding/guarding Extremities: Full ROM Neuro/Psych: No focal deficits <Rosalinda Last Filed: 11/18/18 08:10> ED Labs/Radiology/EKG Results - Radiology Results Results: CXR: No focal consolidation - EKG Interpretations EKG Time:: 01:39 Rate & Rhythm: 64 bpm, sinus rhythm [place]: normal P axis Intervals: RBBB, LAFB <Rosalinda Filed: 11/18/18 08:10> - Lab Results Results: Laboratory Tests 11/18/18 11/18/18 11/18/18 01:39 01:39 01:39 WBC 5.2 RBC 4.33 Hgb 13.5 Hct 40.7 L MCV 94.0 MCH 31.1 H MCHC Differential 33.1 RDW 13.6 Plt Count 223 MPV 7.9 Neutrophils % 51.7 Lymphocytes % 39.1 Monocytes % 4.5 Eosinophils % 4.3 Basophils % 0.4 Sodium 142 Potassium 4.0 Chloride 109 H Carbon Dioxide 27.9 Anion Gap 9.1 BUN 25 Creatinine 1.0 Est GFR ( Amer) TNP Est GFR (Non-Af Amer) TNP BUN/Creatinine Ratio 25.0 Glucose 72 Calcium 8.5 L Total Bilirubin 0.3 AST 16 ALT 10 Alkaline Phosphatase 61 Troponin I B-Natriuretic Peptide 48.4 Total Protein 5.5 L Albumin 3.4 L Globulin 2.1 Albumin/Globulin Ratio 1.6 Triglycerides Cholesterol LDL Cholesterol Direct HDL Cholesterol 11/18/18 11/18/18 01:39 01:39 WBC RBC Hgb Hct MCV MCH MCHC Differential RDW Plt Count MPV Neutrophils % Lymphocytes % Monocytes % Eosinophils % Basophils % Sodium Potassium Chloride Carbon Dioxide Anion Gap BUN Creatinine Est GFR ( Amer) Est GFR (Non-Af Amer) BUN/Creatinine Ratio Glucose Calcium Total Bilirubin AST ALT Alkaline Phosphatase Troponin I < 0.01 L B-Natriuretic Peptide Total Protein Albumin Globulin Albumin/Globulin Ratio Triglycerides 46 Cholesterol 89 LDL Cholesterol Direct 33 L HDL Cholesterol 47 <Chaparro Butts - Last Filed: 11/18/18 08:18> ED Assessment - Assessment General Assessment: Bronchitis Dehydration Assessment/Comments:: CBC, CMP, Trop, BNP, lipid panel, UA CXR, EKG DuoNeb NS 250ml IV bolus <Sarahi Tellez - Last Filed: 11/18/18 08:10> ED Septic Shock - . Is Septic Shock (SBP<90, OR Lactate>4 mmol\L) present?: No - <6hrs of presentation: Vital Signs: Vital Signs - 8 hr 11/18/18 00:00 Temp 97.3 F HR 67 RR 18 BP 100/55 O2 Sat % 95 <Sarahi Tellez - Last Filed: 11/18/18 08:10> - . Is Septic Shock (SBP<90, OR Lactate>4 mmol\L) present?: No - <6hrs of presentation: Vital Signs: Vital Signs - 8 hr 11/18/18 00:00 Temp 97.3 F HR 67 RR 18 BP 100/55 O2 Sat % 95 <Chaparro Butts - Last Filed: 11/18/18 08:18> ED Reassessment (Disposition) - Reassessment Reassessment:: Awaiting for UA result Dr. Butts assumed care at 07:00 Reassessment Condition:: Improved <Sarahi Tellez - Last Filed: 11/18/18 08:10> - Diagnosis Diagnosis:: Acute viral syndrome - Aftercare/Follow up Instructions Aftercare/Follow-Up Instructions:: Refer to Discharge Instructions - Patient Disposition Discharge/Transfer:: Half-Way Care - SNF Spoke to:: Christopher Garsia Condition at Disposition:: Stable, Improved <Chaparro Butts - Last Filed: 11/18/18 08:18>
[2018-11-18 01:49] LABS: % BASOPHILS 0.4 % (0.0-2.0); % EOSINOPHILS 4.3 % (0.0-5.0); % LYMPHOCYTES 39.1 % (20.0-50.0); % MONOCYTES 4.5 % (2.0-10.0); % NEUTROPHILS 51.7 % (40.0-80.0); EOSINOPHILE ABSOLUTE 0.2 Th/cmm (0.1-0.4); HEMATOCRIT 40.7 % (41.0-60); HEMOGLOBIN 13.5 gm/dL (12-16); MEAN CORPUSCULAR HEMOGLOBIN 31.1 pg (27.0-31.0); MEAN CORPUSCULAR HGB CONC 33.1 pg (28.0-36.0); MEAN PLATELET VOLUME 7.9 fl; MONOCYTE ABSOLUTE 0.2 Th/cmm (0.3-1.0); NEUTROPHILE ABSOLUTE 2.8 Th/cmm (1.8-8.0); PLATELET COUNT 223 Th/cmm (150-400); RED BLOOD COUNT 4.33 Mil/cmm (3.80-5.80); RED CELL DISTRIBUTION WIDTH 13.6 % (11.5-20.0); WHITE BLOOD COUNT 5.2 Th/cmm (4.8-10.8)
[2018-11-18 02:06] LABS: ALB/GLOB RATIO 1.6 (1.0-1.8); ALBUMIN 3.4 gm/dL (4.2-5.5); ALKALINE PHOSPHATASE 61 U/L (34-104); ANION GAP 9.1 (7.0-16.0); BILIRUBIN,TOTAL 0.3 mg/dL (0.3-1.0); BUN - UREA NITROGEN 25 mg/dL (7-25); CALCIUM SERUM 8.5 mg/dL (8.6-10.3); CARBON DIOXIDE 27.9 mEq/L (21.0-31.0); CHLORIDE 109 mEq/L (98-107); GLUCOSE 72 mg/dL (70-105); SGOT 16 U/L (13-39); SGPT/ALT 10 U/L (7-52); SODIUM SERUM 142 mEq/L (136-145); TOTAL PROTEIN,SERUM 5.5 gm/dL (6.0-8.3)
[2018-11-18 02:20] LABS: CHOLESTEROL 89 mg/dL (<200); HDL -HIGH DENSITY LIPOPROTEIN 47 mg/dL (23-92); TRIGLYCERIDES 46 mg/dL (<150)
[2018-11-18] MEDS ORDERED: Albuterol/Ipratropium Neb 3 ML AERS HHN ONE ×2 (02:23→02:39)
[2018-11-18] MEDS ORDERED: Sodium Chloride 0.9% 250 ML IV ONE (06:08)
[2018-11-18 08:01] LABS: URINE SOURCE MIDSTREAM
[2018-11-18 08:09] LABS: URINE BILIRUBIN NEGATIVE (NEGATIVE); URINE BLOOD NEGATIVE (NEGATIVE); URINE GLUCOSE (UA) NEGATIVE (NEGATIVE); URINE KETONE NEGATIVE (NEGATIVE); URINE LEUKOCYTE ESTERASE NEGATIVE (NEGATIVE); URINE NITRATE NEGATIVE (NEGATIVE); URINE PROTEIN NEGATIVE (NEGATIVE); URINE UROBILINOGEN 0.2 E.U./dL (0.2 - 1.0)
[2018-11-18 08:11] LABS: URINE CLARITY SLIGHTLY HAZY (CLEAR); URINE COLOR YELLOW; URINE MICROSCOPIC INDICATED? NO
--- NOTE | 2018-11-18 08:19 | Diagnostic Imaging Report ---
Exam: Chest portable HISTORY: Shortness of breath Findings: Portable summation of chest at 0 211 reviewed compared to prior study 08/20/2018 demonstrates no active pulmonic infiltrates or effusions. Aorta tortuous. The heart is not enlarged. Bony thorax is intact. COPD changes are noted. IMPRESSION: COPD changes, no acute disease .
== END 2018-11-18 09:15 ==
LOC: ER 23:56
DX: B34.9 Viral infection, unspecified (principal); J40 Bronchitis, not specified as acute or chronic; E86.0 Dehydration; J44.9 Chronic obstructive pulmonary disease, unspecified; E07.9 Disorder of thyroid, unspecified; F03.90 Unspecified dementia, unspecified severity, without behavioral disturbance, psychotic disturbance, mood disturbance, and anxiety; Z86.73 Personal history of transient ischemic attack (TIA), and cerebral infarction without residual deficits
CPT/HCPCS: 36415-UA; 71045-TC; 80053-TC; 80061-TC; 81003-TC; 83880-TC; 84484-TC; 85025-TC; 93005; 94640; Z7502